=== PATIENT | male | born 1935 | race Caucasian/White ===

== ENCOUNTER 2017-06-23 11:24 | Day surgery (SDC) | payer MEDICARE, BC ==
[~2017-06-23 11:24] MED LIST: Lactated Ringers 1,000 ML IV SCH; Lidocaine 2% 5 ML SDV ONE; Propofol 200 MG/20 ML SDV ONE
--- NOTE | 2017-06-23 12:38 | PCM.PREANE ---
Preanesthetic Assessment - Anesthesia/Transfusion/Family Hx Anesthesia History: Prior Anesthesia Without Reaction Family History of Anesthesia Reaction: No Transfusion History: No Prior Transfusion(s) Intubation History: Unknown - Review of Systems General: No Symptoms Pulmonary: No Symptoms Cardiovascular: No Symptoms Gastrointestinal: Other (h/o colon polyps '11, unintentional loss of 7 pounds) Neurological: No Symptoms Other: Reports: None - Physical Assessment Height: 1.8 m Weight: 92.533 kg ASA Class: 2 Mental Status: Alert & Oriented x3 Airway Class: Mallampati = 2 Dentition: Reports: [place](s) (multiple upper front) Thyro-Mental Finger Breadths: 2 Mouth Opening Finger Breadths: 3 ROM/Head Extension: Limited/Partial Lungs: Clear to Auscultation, Normal Respiratory Effort Cardiovascular: Regular Rate, Regular Rhythm - Allergies Allergies/Adverse Reactions: Allergies Allergy/AdvReac Type Severity Reaction Status Date / Time Sulfa (Sulfonamide Allergy Cannot Verified 06/18/17 10:25 Antibiotics) Remember - Blood Blood Available: No - Anesthesia Plan Pre-Op Medication Ordered: None - Acknowledgements Anesthesia Type Planned: MAC Pt an Appropriate Candidate for the Planned Anesthesia: Yes Alternatives and Risks of Anesthesia Discussed w Pt/Guardian: Yes Pt/Guardian Understands and Agrees with Anesthesia Plan: Yes PreAnesthesia Questionnaire HEENT History: Reports: Glaucoma, Other (See Below) Other HEENT History: wears glasses, glaucoma rt eye Gastrointestinal History: Reports: Colon Polyp, Diverticulosis Genitourinary History: Reports: Prostate Disorder (s/p TURP) Other Genitourinary History: hx Bladder Cancer, s/p TURBT (per patient Neurological History: Reports: Other (See Below) Other Neuro History: Essential Tremors Oncologic (Cancer) History: Reports: Bladder - Past Surgical History Head Surgeries/Procedures: Reports: None HEENT Surgical History: Reports: Cataract Surgery GI Surgical History: Reports: Appendectomy, Colonoscopy, Hernia, Inguinal ( bilateral) Male Surgical History: Reports: TURP-Transurethral Resection of Prostate, Other (See Below) Other Male Surgeries/Procedures: cystoscopy - SUBSTANCE USE Smoking Status *Q: Former Smoker Recreational Drug Use History: No - HOME MEDS Home Medications: Home Meds Ascorbate Calcium [Vitamin C] 500 mg PO ASDIRECTED 06/18/17 [History] Latanoprost [Xalatan 0.005% Ophth Soln] 1 drop EYERT BEDTIME 06/18/17 [History] Propranolol [Inderal] 60 mg PO DAILY 06/18/17 [History] Vitamin A 10,000 units PO ASDIRECTED 06/18/17 [History] Vitamin E 400 units PO ASDIRECTED 06/18/17 [History] - CURRENT (IN HOUSE) MEDS Current Meds: Current Medications Lactated Ringer's (Ringers, Lactated) 1,000 mls @ 125 mls/hr IV ASDIRECTED KRYSTLE Discontinued Medications Lidocaine (Xylocaine-Mpf 2%) Confirm Administered Dose 5 ml .ROUTE .STK-MED ONE Stop: 06/23/17 07:42 Propofol (Diprivan 20 Ml) Confirm Administered Dose 400 mg .ROUTE .STK-MED ONE Stop: 06/23/17 07:42
[2017-06-23] MEDS ORDERED: Propofol 200 MG/20 ML SDV ONE (14:10)
[2017-06-23] MEDS ORDERED: Ondansetron 4 MG Tab.DIS PO PRN (14:39)
--- NOTE | 2017-06-23 14:48 | PCM.OPNOTE ---
- General Post-Op/Procedure Note Date of Surgery/Procedure: 06/23/17 Operative Procedure(s): Esophagogastroduodenoscopy with biopsy. Colonoscopy with cold, sigmoid, descending colon, transverse colon and ascending colon, polypectomies. Pre Op Diagnosis: Early satiety, unexplained weight loss with change in bowel habits Post-Op Diagnosis: Moderate gastritis. Sigmoid, descending colon, transverse colon and ascending colon polyps. Anesthesia Technique: MAC (ASA II) Primary Surgeon: Amos Londono Vp Revenue Cycle: Ed Madrigal Condition: Good Free Text/Narrative:: Dictation [id number] CPT CODE [id number]
[2017-06-23] MEDS ORDERED: Lactated Ringers 1,000 ML IV SCH (15:00)
--- NOTE | 2017-06-23 15:19 | PCM48HPAN ---
Post Anesthesia Note - EVALUATION WITHIN 48HRS OF ANESTHETIC Vital Signs in Normal Range: Yes Patient Participated in Evaluation: Yes Respiratory Function Stable: Yes Airway Patent: Yes Cardiovascular Function Stable: Yes Hydration Status Stable: Yes Pain Control Satisfactory: Yes Nausea and Vomiting Control Satisfactory: Yes Mental Status Recovered: Yes Resp Rate: 16
--- NOTE | 2017-06-23 16:04 | OR ---
SURGEON: Amos Londono M.D. DATE OF PROCEDURE: 06/23/2017 PREOPERATIVE DIAGNOSIS: Unexplained weight loss. Change in bowel habits. POSTOPERATIVE DIAGNOSIS: Sigmoid, descending colon, transverse colon and ascending colon polyps. OPERATION PERFORMED: Colonoscopy with multiple cold polypectomies from the sigmoid colon, descending colon, transverse colon, and ascending colon. DESCRIPTION OF PROCEDURE: With the patient having completed esophagogastroduodenoscopy, he is now maintained in the left lateral decubitus position. The colonoscope was inserted into the rectum and advanced with moderate difficulty to the cecum where the colonoscope was retroflexed to visualize the ascending colon. The colonoscope was then straightened and slowly withdrawn. One polyp was encountered in the ascending colon and removed with the cold biopsy forceps. The hepatic flexure, proximal, and mid transverse colon showed no tumors or polyps. Another polyp was encountered in the transverse colon and removed with cold biopsy forceps. A third polyp was encountered as the scope was withdrawn into the descending colon and likewise removed with the cold biopsy forceps. The fourth polyp was encountered in the sigmoid colon and also removed with the cold biopsy forceps. No sigmoid diverticula were identified. Once the colonoscope was withdrawn to the rectum, it was retroflexed to visualize the anal orifice from above. Again, no tumors, polyps, or acute hemorrhoidal changes were noted. The colonoscope was then straightened, the rectum aspirated, and the colonoscope removed. The patient tolerated the procedure well and was taken to recovery room in satisfactory condition. HOMERO VANN /[id number] ROMINA
--- NOTE | 2017-06-23 16:10 | OR ---
SURGEON: Amos Londono M.D. DATE OF PROCEDURE: 06/23/2017 OPERATION PERFORMED: Esophagogastroduodenoscopy with biopsies. TRAINING DEVELOPMENT MANAGER: Dr. Madrigal, PGY3. ANESTHESIA: MAC. ASA CLASSIFICATION: II. PREOPERATIVE DIAGNOSIS: Early satiety with weight loss. POSTOPERATIVE DIAGNOSES: 1. [id number] acute gastritis. 2. No ulceration. DESCRIPTION OF PROCEDURE: The patient was taken to the endoscopy room and positioned on the endoscopy table in the left lateral decubitus position. Time-out was called for appropriate identification of the patient and procedure. Monitored anesthesia care was provided. A bite block was placed between the patient's teeth. The gastroscope was inserted through the bite block into the oropharynx and advanced without difficulty through the esophagus and stomach into the duodenum where examination was carried out in a retrograde fashion. The duodenum shows no acute inflammatory changes or ulcerations. The gastroscope was withdrawn to the stomach, which does show [id number] gastritis. Antral biopsies were obtained to look for the presence of Helicobacter pylori. The gastroscope was retroflexed to visualize the proximal stomach. No ulcerations were noted. No tumors were identified. The gastroscope was then straightened and slowly withdrawn carefully visualizing the greater and lesser curvatures before aspirating the stomach. No tumors or ulcerations were noted in the proximal stomach. The GE junction was well defined and shows no acute inflammatory changes or ulcerations. The esophagus demonstrates fair contractility. No mid or proximal lesions were identified. The vocal cords were visualized as the scope was withdrawn and noted to move symmetrically. The gastroscope was then removed with the patient having tolerated this portion of the procedure well. Following colonoscopy and multiple polypectomies, the patient was taken to the recovery room in satisfactory condition. HOMERO / SOO /[id number]
[2017-06-23 16:16] VITALS: BP 150/80
== END 2017-06-23 15:20 | disposition home or self-care (01) ==
LOC: MW.SDS 11:24
PROVIDERS: ATTEND Surgery
DX: D12.2 Benign neoplasm of ascending colon (principal); D12.3 Benign neoplasm of transverse colon; D12.4 Benign neoplasm of descending colon; D12.5 Benign neoplasm of sigmoid colon; K29.50 Unspecified chronic gastritis without bleeding; Z88.2 Allergy status to sulfonamides; Z79.899 Other long term (current) drug therapy; Z87.891 Personal history of nicotine dependence
CPT/HCPCS: 43239; 45380; 88305; 88312; J7120; J2704

== ENCOUNTER 2018-04-13 09:01 | Emergency (ER) | payer MEDICARE, BC ==
--- NOTE | 2018-04-13 09:14 | EDM.PDOC ---
ED HPI GENERAL MEDICAL PROBLEM - General Chief Complaint: Neck Problem Stated Complaint: NECK PAIN Time Seen by Provider: 04/13/18 09:12 Source of Information: Reports: Patient History Limitations: Reports: No Limitations - History of Present Illness INITIAL COMMENTS - FREE TEXT/NARRATIVE: History of present illness: []Patient had severe left-sided neck pain last night when he tries to lift his head his pain is worse. He denies any trauma, fevers, difficulty breathing or swallowing or miss or tingling.Review of systems: As per history of present illness and below otherwise all systems reviewed and negative. Past medical history: As per history of present illness and as reviewed below otherwise noncontributory. Surgical history: As per history of present illness and as reviewed below otherwise noncontributory. Social history: No reported history of drug or alcohol abuse. Family history: As per history of present illness and as reviewed below otherwise noncontributory. Physical exam: General: Well developed, well nourished in NAD HEENT: Atraumatic, normocephalic, pupils reactive, negative for conjunctival pallor or scleral icterus, mucous membranes moist, throat clear, neck supple, reproducible tenderness to palpation left base skull, no palpable masses, no erythema or crepitance noted.trachea midline. Lungs: Clear to auscultation, breath sounds equal bilaterally, chest nontender. Heart: S1S2, regular, negative for clicks, rubs, or JVD. Abdomen: NABS, Soft, nondistended, nontender. Negative for masses or hepatosplenomegaly. Negative for costovertebral tenderness. Pelvis: Stable nontender. Genitourinary: Deferred. Rectal: Deferred. Extremities: Atraumatic, negative for cords or calf pain. Neurovascular unremarkable. Neuro: Awake, alert, oriented. Cranial nerves II through XII unremarkable. Cerebellum unremarkable. Motor and sensory unremarkable throughout. Exam nonfocal. Skin:warm and dry Diagnostics: None Therapeutics: Declined pain meds unremarkable ED Course: Impression: Neck muscle spasm Prescriptions: Flexeril Plan: Use meds as directed take Tylenol and Motrin for pain as well as warm compresses. Definitive disposition and diagnosis as appropriate pending reevaluation and review of above. neck Pain Score (Numeric/FACES): 8 - Related Data Allergies Allergy/AdvReac Type Severity Reaction Status Date / Time Sulfa (Sulfonamide Allergy Cannot Verified 06/18/17 10:25 Antibiotics) Remember Home Meds: Home Meds Ascorbate Calcium [Vitamin C] 500 mg PO ASDIRECTED 06/18/17 [History] Latanoprost [Xalatan 0.005% Ophth Soln] 1 drop EYERT BEDTIME 06/18/17 [History] Propranolol [Inderal] 60 mg PO DAILY 06/18/17 [History] Vitamin A 10,000 units PO ASDIRECTED 06/18/17 [History] Vitamin E 400 units PO ASDIRECTED 06/18/17 [History] Cyclobenzaprine [Flexeril] 10 mg PO BID PRN #12 tab 04/13/18 [Rx] Past Medical History HEENT History: Reports: Glaucoma, Other (See Below) Other HEENT History: wears glasses, glaucoma rt eye Gastrointestinal History: Reports: Colon Polyp, Diverticulosis Genitourinary History: Reports: Prostate Disorder (s/p TURP) Other Genitourinary History: hx Bladder Cancer, s/p TURBT (per patient Neurological History: Reports: Other (See Below) Other Neuro History: Essential Tremors Oncologic (Cancer) History: Reports: Bladder - Past Surgical History Head Surgeries/Procedures: Reports: None HEENT Surgical History: Reports: Cataract Surgery GI Surgical History: Reports: Appendectomy, Colonoscopy, Hernia, Inguinal ( bilateral) Male Surgical History: Reports: TURP-Transurethral Resection of Prostate, Other (See Below) Other Male Surgeries/Procedures: cystoscopy ED ROS GENERAL - Review of Systems Review Of Systems: ROS reveals no pertinent complaints other than HPI. ED EXAM, UPPER BACK/NECK PAIN - Physical Exam Exam: See Below (See history of present illness) Course - Vital Signs Last Recorded V/S: Last Vital Signs Temp 96.2 F 04/13/18 09:13 Pulse 75 04/13/18 09:13 Resp 18 04/13/18 09:13 BP 158/77 H 04/13/18 09:13 Pulse Ox 97 04/13/18 09:13 Departure - Departure Time of Disposition: 09:22 Disposition: Home, Self-Care 01 Condition: Good Clinical Impression: Musculoskeletal strain - Discharge Information *PRESCRIPTION DRUG MONITORING PROGRAM REVIEWED*: No *COPY OF PRESCRIPTION DRUG MONITORING REPORT IN PATIENT MARIELA: No Prescriptions: Cyclobenzaprine [Flexeril] 10 mg PO BID PRN #12 tab PRN Reason: Pain Instructions: Muscle Strain, [id number] Referrals: Sergio Paul MD [Primary Care Provider] - Forms: ED Department Discharge Additional Instructions: The following information is given to patients seen in the emergency department who are being discharged to home. This information is to outline your options for follow-up care. We provide all patients seen in our emergency department with a follow-up referral. The need for follow-up, as well as the timing and circumstances, are variable depending upon the specifics of your emergency department visit. If you don't have a primary care physician on staff, we will provide you with a referral. We always advise you to contact your personal physician following an emergency department visit to inform them of the circumstance of the visit and for follow-up with them and/or the need for any referrals to a consulting specialist. The emergency department will also refer you to a specialist when appropriate. This referral assures that you have the opportunity for follow-up care with a specialist. All of these measure are taken in an effort to provide you with optimal care, which includes your follow-up. Under all circumstances we always encourage you to contact your private physician who remains a resource for coordinating your care. When calling for follow-up care, please make the office aware that this follow-up is from your recent emergency room visit. If for any reason you are refused follow-up, please contact the [facility] Emergency Department at and asked to speak to the emergency department charge nurse. Take Flexeril for muscle pain in your neck, he can also use Tylenol or ibuprofen as well as warm packs. Follow up with primary care as needed [facility] [address] [place] [id number]
[2018-04-13 09:35] VITALS: BP 151/78
== END 2018-04-13 09:33 | disposition home or self-care (01) ==
LOC: MW.ED 09:01
DX: S16.1XXA Strain of muscle, fascia and tendon at neck level, initial encounter (principal); Z79.899 Other long term (current) drug therapy; Z85.51 Personal history of malignant neoplasm of bladder; Z88.2 Allergy status to sulfonamides; Z90.89 Acquired absence of other organs; Z98.890 Other specified postprocedural states; Z87.891 Personal history of nicotine dependence; X58.XXXA Exposure to other specified factors, initial encounter
CPT/HCPCS: 99282; 99283

== ENCOUNTER 2020-02-08 18:13 | Emergency (ER) | payer MEDICARE, BC ==
[2020-02-08] MEDS ORDERED: Ondansetron 4 MG/2 ML SDV IVPUSH ONE (20:10)
[2020-02-08] MEDS ORDERED: Sodium Chloride 0.9% 1,000 ML IV ONE (20:10)
--- NOTE | 2020-02-08 20:28 | EDM.PDOC ---
ED HPI GENERAL MEDICAL PROBLEM - General Chief Complaint: General Stated Complaint: SHAKES NOT FEELING WELL Time Seen by Provider: 02/08/20 19:45 Source of Information: Reports: Patient History Limitations: Reports: No Limitations - History of Present Illness INITIAL COMMENTS - FREE TEXT/NARRATIVE: Patient presents "feeling lousy" for the last 10 to 14 days. His biggest proble m is no appetite. He has been slightly nauseated but no vomiting. He is shaky, weak and a little short of breath. He has not eaten hardly anything but has drink lots of fluids. He denies fever, dysuria, pain, abdominal pain, chest pain, cough. He did see his primary provider yesterday in the clinic who did a Covid test but the results are not back. No other testing was done but he was started on doxycycline--he does not know why. His only health history is essential tremor for which he takes propranolol. - Related Data Allergies Allergy/AdvReac Type Severity Reaction Status Date / Time Sulfa (Sulfonamide Allergy Cannot Verified 02/08/20 19:46 Antibiotics) Remember Home Meds: Home Meds Doxycycline Hyclate 100 mg PO BID 02/08/20 [History] Ondansetron [Zofran ODT] 1 tab PO Q6H PRN #10 tab.dis 02/08/20 [Rx] Propranolol [Inderal LA] 60 mg PO DAILY 02/08/20 [History] Past Medical History HEENT History: Reports: Glaucoma, Other (See Below) Other HEENT History: wears glasses, glaucoma rt eye Cardiovascular History: Reports: None Respiratory History: Reports: None Gastrointestinal History: Reports: Colon Polyp, Diverticulosis Other Gastrointestinal History: x2 hernia Genitourinary History: Reports: Prostate Disorder Other Genitourinary History: hx Bladder Cancer, s/p TURBT (per patient Musculoskeletal History: Reports: None Neurological History: Reports: Other (See Below) Other Neuro History: Essential Tremors Psychiatric History: Reports: None Endocrine/Metabolic History: Reports: None Hematologic History: Reports: None Immunologic History: Reports: None Oncologic (Cancer) History: Reports: Bladder Dermatologic History: Reports: None - Infectious Disease History Infectious Disease History: Reports: None - Past Surgical History Head Surgeries/Procedures: Reports: None HEENT Surgical History: Reports: Cataract Surgery Cardiovascular Surgical History: Reports: None Respiratory Surgical History: Reports: None GI Surgical History: Reports: Appendectomy, Colonoscopy, Hernia, Inguinal Male Surgical History: Reports: TURP-Transurethral Resection of Prostate, Other (See Below) Other Male Surgeries/Procedures: cystoscopy Endocrine Surgical History: Reports: None Musculoskeletal Surgical History: Reports: None Dermatological Surgical History: Reports: None Social & Family History - Family History Family Medical History: No Pertinent Family History - Caffeine Use Caffeine Use: Reports: Coffee, Soda - Recreational Drug Use Recreational Drug Use: No ED ROS GENERAL - Review of Systems Review Of Systems: Comprehensive ROS is negative, except as noted in HPI. ED EXAM, GENERAL - Physical Exam Exam: See Below Exam Limited By: No Limitations General Appearance: Alert, No Apparent Distress Ears: Hearing Loss (WRANGELL, DIAZ left ear) Nose: Normal Inspection Throat/Mouth: Normal Inspection Head: Atraumatic, Normocephalic Neck: Normal Inspection Respiratory/Chest: No Respiratory Distress, Lungs Clear, Normal Breath Sounds Cardiovascular: Normal Peripheral Pulses, Regular Rate, Rhythm, No Murmur Back Exam: Normal Inspection Extremities: Normal Inspection Neurological: Alert, Oriented Psychiatric: Normal Affect, Normal Mood Skin Exam: Warm, Dry, Intact, Normal Color, No Rash Lymphatic: No Adenopathy Course - Vital Signs Last Recorded V/S: Last Vital Signs Temp 37.2 C 02/08/20 19:49 Pulse 73 02/08/20 19:49 Resp 22 H 02/08/20 19:49 BP 152/84 H 02/08/20 19:49 Pulse Ox 96 02/08/20 19:49 - Orders/Labs/Meds Orders: Active Orders 24 hr Category Date Time Status CORONAVIRUS COVID-19 PCR PHL Stat Lab 02/08/20 20:12 Ordered UA W/FOZIA RFLX IF INDICATED [URIN] Stat Lab 02/08/20 20:10 Ordered Sodium Chloride 0.9% [Normal Saline] 1,000 ml Med 02/08/20 20:10 Active IV .Bolus Medication Orders Sodium Chloride (Normal Saline) 1,000 mls @ 999 mls/hr IV .Bolus ONE Stop: 02/08/20 21:10 Last Admin: 02/08/20 20:18 Dose: 999 mls/hr Documented by: CAT Labs: Laboratory Tests 02/08/20 02/08/20 Range/Units 20:15 20:15 WBC 5.50 (4.0-11.0) K/uL RBC 4.32 L (4.50-5.90) M/uL Hgb 13.5 (13.0-17.0) g/dL Hct 40.4 (38.0-50.0) % MCV 93.5 (80.0-98.0) fL MCH 31.3 (27.0-32.0) pg MCHC 33.4 (31.0-37.0) g/dL RDW Std Deviation 47.0 (28.0-62.0) fl RDW Coeff of Trev 14 (11.0-15.0) % Plt Count 166 (150-400) K/uL MPV 11.40 (7.40-12.00) fL Neut % (Auto) 62.9 (48.0-80.0) % Lymph % (Auto) 19.8 (16.0-40.0) % [place] % (Auto) 17.1 H (0.0-15.0) % Eos % (Auto) 0.0 (0.0-7.0) % Baso % (Auto) 0.2 (0.0-1.5) % Neut # (Auto) 3.5 (1.4-5.7) K/uL Lymph # (Auto) 1.1 (0.6-2.4) K/uL [place] # (Auto) 0.9 H (0.0-0.8) K/uL Eos # (Auto) 0.0 (0.0-0.7) K/uL Baso # (Auto) 0.0 (0.0-0.1) K/uL Nucleated RBC % 0.0 /100WBC Nucleated RBCs # 0 K/uL Sodium 131 L (136-148) mmol/L Potassium 3.8 (3.5-5.1) mmol/L Chloride 96 L (98-107) mmol/L Carbon Dioxide 25.2 (21.0-32.0) mmol/L BUN 17 (7.0-18.0) mg/dL Creatinine 1.1 (0.8-1.3) mg/dL Est Cr Clr Drug Dosing 52.29 mL/min Estimated GFR (MDRD) > 60.0 ml/min Glucose 120 H (74-106) mg/dL Calcium 9.1 (8.5-10.1) mg/dL Total Bilirubin 1.1 H (0.2-1.0) mg/dL AST 34 (15-37) IU/L ALT 27 (14-63) IU/L Alkaline Phosphatase 87 (46-116) U/L Total Protein 7.2 (6.4-8.2) g/dL Albumin 3.6 (3.4-5.0) g/dL Globulin 3.6 (2.6-4.0) g/dL Albumin/Globulin Ratio 1.0 (0.9-1.6) Meds: Medications Generic Name Dose Route Start Last Admin Trade Name Freq PRN Reason Stop Dose Admin Sodium Chloride 1,000 mls @ 999 mls/hr 02/08/20 20:10 02/08/20 20:18 Normal Saline IV 02/08/20 21:10 999 mls/hr .Bolus ONE Administration Discontinued Medications Generic Name Dose Route Start Last Admin Trade Name Freq PRN Reason Stop Dose Admin Ondansetron HCl 4 mg 02/08/20 20:10 02/08/20 20:18 Zofran IVPUSH 02/08/20 20:11 4 mg ONETIME ONE Administration - Re-Assessments/Exams Free Text/Narrative Re-Assessment/Exam: 02/08/20 22:03 Patient is Covid positive. His chest x-ray completely clear. Suggest saturations in the upper 90s. Afebrile. The patient has been symptomatic for 10 to 14 days and is likely near the end of his convalescence. Departure - Departure Time of Disposition: 22:03 Disposition: Home, Self-Care 01 Condition: Good Clinical Impression: COVID-19 - Discharge Information Referrals: Sergio Paul MD [Primary Care Provider] - Forms: ED Department Discharge Additional Instructions: The following information is given to patients seen in the emergency department who are being discharged to home. This information is to outline your options for follow-up care. We provide all patients seen in our emergency department with a follow-up referral. The need for follow-up, as well as the timing and circumstances, are variable depending upon the specifics of your emergency department visit. If you don't have a primary care physician on staff, we will provide you with a referral. We always advise you to contact your personal physician following an emergency department visit to inform them of the circumstance of the visit and for follow-up with them and/or the need for any referrals to a consulting spec ialist. The emergency department will also refer you to a specialist when appropriate. This referral assures that you have the opportunity for follow-up care with a specialist. All of these measure are taken in an effort to provide you with optimal care, which includes your follow-up. Under all circumstances we always encourage you to contact your private physician who remains a resource for coordinating your care. When calling for follow-up care, please make the office aware that this follow-up is from your recent emergency room visit. If for any reason you are refused follow-up, please contact the [facility] Emergency Department at and asked to speak to the emergency department charge nurse. 1. Drink plenty of fluids 2. Tylenol Extra Strength 1 tablet every 6-8 hours as needed for body aches or fever 3. Zofran under the tongue every 8 hours as needed for nausea 4. Promptly to the ER for shortness of breath, vomiting and not keeping down oral fluids, new or worsening symptoms Sepsis Event Note (ED) - Evaluation Sepsis Screening Result: No Definite Risk - Focused Exam Vital Signs: Vital Signs Temp Pulse Resp BP Pulse Ox 02/08/20 19:49 37.2 C 73 22 H 152/84 H 96 - My Orders Last 24 Hours: My Active Orders 02/08/20 20:10 UA W/FOZIA RFLX IF INDICATED [URIN] Stat Sodium Chloride 0.9% [Normal Saline] 1,000 ml IV .Bolus 02/08/20 20:12 CORONAVIRUS COVID-19 PCR PHL Stat - Assessment/Plan Last 24 Hours: My Active Orders 02/08/20 20:10 UA W/FOZIA RFLX IF INDICATED [URIN] Stat Sodium Chloride 0.9% [Normal Saline] 1,000 ml IV .Bolus 02/08/20 20:12 CORONAVIRUS COVID-19 PCR PHL Stat
--- NOTE | 2020-02-08 20:48 | CR ---
INDICATION: malaise,sob TECHNIQUE: Chest 2 views. COMPARISON: None. FINDINGS: Cardiovascular and mediastinum: Heart size and vasculature are normal in caliber and appearance. Mediastinum is within normal limits. Lungs and pleural spaces: Lungs are clear. No sign of infiltrate or mass. No sign of pleural effusion. No pneumothorax. Bones and soft tissues: No significant findings. IMPRESSION: Unremarkable chest. Dictated by: Meliton Fernandez MD @ 02/08/2020 20:46:50 (Electronically Signed)
[2020-02-08 20:51] LABS: BLOOD UREA NITROGEN,BUN 17 mg/dL (7.0-18.0); CARBON DIOXIDE,CO2 25.2 mmol/L (21.0-32.0); CHLORIDE,CL 96 mmol/L (98-107); GLUCOSE RANDOM 120 mg/dL (74-106); POTASSIUM,K 3.8 mmol/L (3.5-5.1); SODIUM,NA 131 mmol/L (136-148)
[2020-02-08 22:39] VITALS: BP 140/65; PULSE 69
== END 2020-02-08 22:35 | disposition home or self-care (01) ==
LOC: MW.ED 18:13
DX: U07.1 COVID-19 (principal); Z88.2 Allergy status to sulfonamides; Z79.899 Other long term (current) drug therapy
CPT/HCPCS: 36415; 71046; 80053; 81003; 85025; 96374; 99285; J2405; J7030; U0002; 99283

== ENCOUNTER 2020-02-09 17:42 | Emergency (ER) | payer MEDICARE, BC ==
[2020-02-09] MEDS ORDERED: Sodium Chloride 0.9% 500 ML IV ONE (17:56)
[2020-02-09] MEDS ORDERED: Sodium Chloride 0.9% 10 ML Syringe FLUSH PRN (17:56)
[2020-02-09] MEDS ORDERED: Sodium Chloride 0.9% 2.5 ML Syringe FLUSH PRN (17:56)
--- NOTE | 2020-02-09 17:56 | EDM.PDOC ---
<Moises Watson - Last Filed: 02/09/20 20:32> ED HPI GENERAL MEDICAL PROBLEM - General Chief Complaint: Respiratory Problem Stated Complaint: EMS ARRIVAL Time Seen by Provider: 02/09/20 17:49 - Related Data Allergies Allergy/AdvReac Type Severity Reaction Status Date / Time Sulfa (Sulfonamide Allergy Cannot Verified 02/08/20 19:46 Antibiotics) Remember Home Meds: Home Meds Doxycycline Hyclate 100 mg PO BID 02/08/20 [History] Ondansetron [Zofran ODT] 1 tab PO Q6H PRN #10 tab.dis 02/08/20 [Rx] Propranolol [Inderal LA] 60 mg PO DAILY 02/08/20 [History] Departure - Departure Time of Disposition: 20:32 Disposition: Home, Self-Care 01 Condition: Good Clinical Impression: Weakness, Nausea - Discharge Information *PRESCRIPTION DRUG MONITORING PROGRAM REVIEWED*: Not Applicable *COPY OF PRESCRIPTION DRUG MONITORING REPORT IN PATIENT MARIELA: Not Applicable Instructions: Nausea and Vomiting, Adult, Upper Respiratory Infection, Adult, [id number] Referrals: Sergio Paul MD [Primary Care Provider] - Forms: ED Department Discharge Additional Instructions: The following information is given to patients seen in the emergency department who are being discharged to home. This information is to outline your options for follow-up care. We provide all patients seen in our emergency department with a follow-up referral. The need for follow-up, as well as the timing and circumstances, are variable depending upon the specifics of your emergency department visit. If you don't have a primary care physician on staff, we will provide you with a referral. We always advise you to contact your personal physician following an emergency department visit to inform them of the circumstance of the visit and for follow-up with them and/or the need for any referrals to a consulting specialist. The emergency department will also refer you to a specialist when appropriate. This referral assures that you have the opportunity for follow-up care with a specialist. All of these measure are taken in an effort to provide you with optimal care, which includes your follow-up. Under all circumstances we always encourage you to contact your private physician who remains a resource for coordinating your care. When calling for follow-up care, please make the office aware that this follow-up is from your recent emergency room visit. If for any reason you are refused follow-up, please contact the [facility] Emergency Department at and asked to speak to the emergency department charge nurse. Please follow up with your primary care physician. If you do not have a primary care physician, see below: [facility] [address] [place] [id number] [facility] [address] [place], [place] [phone] If you have any difficulty breathing cannot tolerate any food or liquids please return to the ED otherwise please get rest and self quarantine follow-up with your primary care doctor. <Mau Gr - Last Filed: 02/10/20 06:58> ED HPI GENERAL MEDICAL PROBLEM - General Source of Information: Reports: Patient History Limitations: Reports: No Limitations - History of Present Illness INITIAL COMMENTS - FREE TEXT/NARRATIVE: 84-year-old male known diagnosis of COVID-19 presents for persistent nausea, vomiting, lack of appetite, cannot keep anything down. Patient has been feeling unwell for the last 10 or so days. He notes that he has been unable to eat anything for the last 5 days. He notes that he was seen here yesterday for similar symptoms and diagnosed with COVID-19 infection. He notes some mild shortness of breath and mild right-sided chest tightness. However his primary complaint is the nausea, vomiting, lack of appetite, feelings of dehydration. Denies abdominal pain. Denies fevers. Past Medical History HEENT History: Reports: Glaucoma, Other (See Below) Other HEENT History: wears glasses, glaucoma rt eye Cardiovascular History: Reports: None Respiratory History: Reports: None Gastrointestinal History: Reports: Colon Polyp, Diverticulosis Other Gastrointestinal History: x2 hernia Genitourinary History: Reports: Prostate Disorder Other Genitourinary History: hx Bladder Cancer, s/p TURBT (per patient Musculoskeletal History: Reports: None Neurological History: Reports: Other (See Below) Other Neuro History: Essential Tremors Psychiatric History: Reports: None Endocrine/Metabolic History: Reports: None Hematologic History: Reports: None Immunologic History: Reports: None Oncologic (Cancer) History: Reports: Bladder Dermatologic History: Reports: None - Infectious Disease History Infectious Disease History: Reports: None - Past Surgical History Head Surgeries/Procedures: Reports: None HEENT Surgical History: Reports: Cataract Surgery Cardiovascular Surgical History: Reports: None Respiratory Surgical History: Reports: None GI Surgical History: Reports: Appendectomy, Colonoscopy, Hernia, Inguinal Male Surgical History: Reports: TURP-Transurethral Resection of Prostate, Other (See Below) Other Male Surgeries/Procedures: cystoscopy Endocrine Surgical History: Reports: None Musculoskeletal Surgical History: Reports: None Dermatological Surgical History: Reports: None Social & Family History - Family History Family Medical History: No Pertinent Family History - Caffeine Use Caffeine Use: Reports: Coffee, Soda ED ROS GENERAL - Review of Systems Review Of Systems: Comprehensive ROS is negative, except as noted in HPI. ED EXAM, GENERAL - Physical Exam Exam: See Below Exam Limited By: No Limitations General Appearance: Alert, WD/WN, Other (tremors) Throat/Mouth: Normal Voice, No Airway Compromise Head: Atraumatic, Normocephalic Neck: Normal Inspection Respiratory/Chest: No Respiratory Distress, Lungs Clear, Normal Breath Sounds, No Accessory Muscle Use Cardiovascular: Normal Peripheral Pulses, Regular Rate, Rhythm GI/Abdominal: Soft, Non-Tender Extremities: Normal Inspection Neurological: Alert Psychiatric: Normal Affect, Normal Mood Skin Exam: Warm, Dry, Intact, Normal Color Course - Vital Signs Last Recorded V/S: Last Vital Signs Temp 96.5 F L 02/09/20 17:45 Pulse 76 02/09/20 20:33 Resp 18 02/09/20 20:33 BP 110/58 L 02/09/20 20:33 Pulse Ox 96 02/09/20 20:33 - Orders/Labs/Meds Orders: Active Orders 24 hr Category Date Time Status Saline Lock Insert [OM.PC] Stat Oth 02/09/20 17:56 Ordered Labs: Laboratory Tests 02/09/20 02/09/20 02/09/20 Range/Units 18:38 18:38 18:38 WBC 5.71 (4.0-11.0) K/uL RBC 4.45 L (4.50-5.90) M/uL Hgb 13.9 (13.0-17.0) g/dL Hct 41.5 (38.0-50.0) % MCV 93.3 (80.0-98.0) fL MCH 31.2 (27.0-32.0) pg MCHC 33.5 (31.0-37.0) g/dL RDW Std Deviation 47.5 (28.0-62.0) fl RDW Coeff of Trev 14 (11.0-15.0) % Plt Count 167 (150-400) K/uL MPV 12.10 H (7.40-12.00) fL Neut % (Auto) 56.0 (48.0-80.0) % Lymph % (Auto) 25.2 (16.0-40.0) % Mcleod % (Auto) 18.4 H (0.0-15.0) % Eos % (Auto) 0.0 (0.0-7.0) % Baso % (Auto) 0.4 (0.0-1.5) % Neut # (Auto) 3.2 (1.4-5.7) K/uL Lymph # (Auto) 1.4 (0.6-2.4) K/uL Mcleod # (Auto) 1.1 H (0.0-0.8) K/uL Eos # (Auto) 0.0 (0.0-0.7) K/uL Baso # (Auto) 0.0 (0.0-0.1) K/uL Nucleated RBC % 0.0 /100WBC Nucleated RBCs # 0 K/uL Lactate 1.8 (0.20-2.00) mmol/L Sodium 133 L (136-148) mmol/L Potassium 3.8 (3.5-5.1) mmol/L Chloride 97 L (98-107) mmol/L Carbon Dioxide 25.6 (21.0-32.0) mmol/L BUN 16 (7.0-18.0) mg/dL Creatinine 1.2 (0.8-1.3) mg/dL Est Cr Clr Drug Dosing TNP Estimated GFR (MDRD) 57.5 ml/min Glucose 109 H (74-106) mg/dL Calcium 8.9 (8.5-10.1) mg/dL Magnesium 1.9 (1.8-2.4) mg/dL Total Bilirubin 1.1 H (0.2-1.0) mg/dL AST 36 (15-37) IU/L ALT 28 (14-63) IU/L Alkaline Phosphatase 85 (46-116) U/L Troponin I < 0.050 (0.000-0.056) ng/mL C-Reactive Protein 8.20 H (0.00-0.90) mg/dL B-Natriuretic Peptide (<100) PG/ML Total Protein 7.1 (6.4-8.2) g/dL Albumin 3.4 (3.4-5.0) g/dL Globulin 3.7 (2.6-4.0) g/dL Albumin/Globulin Ratio 0.9 (0.9-1.6) Lipase 162 (73-393) U/L 02/09/20 Range/Units 18:38 WBC (4.0-11.0) K/uL RBC (4.50-5.90) M/uL Hgb (13.0-17.0) g/dL Hct (38.0-50.0) % MCV (80.0-98.0) fL MCH (27.0-32.0) pg MCHC (31.0-37.0) g/dL RDW Std Deviation (28.0-62.0) fl RDW Coeff of Trev (11.0-15.0) % Plt Count (150-400) K/uL MPV (7.40-12.00) fL Neut % (Auto) (48.0-80.0) % Lymph % (Auto) (16.0-40.0) % Mcleod % (Auto) (0.0-15.0) % Eos % (Auto) (0.0-7.0) % Baso % (Auto) (0.0-1.5) % Neut # (Auto) (1.4-5.7) K/uL Lymph # (Auto) (0.6-2.4) K/uL Mcleod # (Auto) (0.0-0.8) K/uL Eos # (Auto) (0.0-0.7) K/uL Baso # (Auto) (0.0-0.1) K/uL Nucleated RBC % /100WBC Nucleated RBCs # K/uL Lactate (0.20-2.00) mmol/L Sodium (136-148) mmol/L Potassium (3.5-5.1) mmol/L Chloride (98-107) mmol/L Carbon Dioxide (21.0-32.0) mmol/L BUN (7.0-18.0) mg/dL Creatinine (0.8-1.3) mg/dL Est Cr Clr Drug Dosing Estimated GFR (MDRD) ml/min Glucose (74-106) mg/dL Calcium (8.5-10.1) mg/dL Magnesium (1.8-2.4) mg/dL Total Bilirubin (0.2-1.0) mg/dL AST (15-37) IU/L ALT (14-63) IU/L Alkaline Phosphatase (46-116) U/L Troponin I (0.000-0.056) ng/mL C-Reactive Protein (0.00-0.90) mg/dL B-Natriuretic Peptide 175 H (<100) PG/ML Total Protein (6.4-8.2) g/dL Albumin (3.4-5.0) g/dL Globulin (2.6-4.0) g/dL Albumin/Globulin Ratio (0.9-1.6) Lipase (73-393) U/L Meds: Medications Discontinued Medications Generic Name Dose Route Start Last Admin Trade Name Freq PRN Reason Stop Dose Admin Famotidine 20 mg 02/09/20 17:57 02/09/20 18:40 Pepcid IVPUSH 02/09/20 17:58 20 mg ONETIME ONE Administration Sodium Chloride 500 mls @ 500 mls/hr 02/09/20 17:56 02/09/20 18:43 Normal Saline IV 02/09/20 18:55 500 mls/hr .Bolus ONE Administration Sodium Chloride 1,000 mls @ 999 mls/hr 02/09/20 19:10 02/09/20 19:17 Normal Saline IV 02/09/20 20:10 999 mls/hr .Bolus ONE Administration Metoclopramide HCl 10 mg 02/09/20 19:24 02/09/20 19:28 Reglan IVPUSH 02/09/20 19:25 10 mg ONETIME ONE Administration Ondansetron HCl 4 mg 02/09/20 17:57 02/09/20 18:40 Zofran IVPUSH 02/09/20 17:58 4 mg ONETIME ONE Administration Sodium Chloride 10 ml 02/09/20 17:56 02/09/20 18:44 Saline Flush FLUSH 10 ml ASDIRECTED PRN Administration Keep Vein Open Sodium Chloride 2.5 ml 02/09/20 17:56 02/09/20 18:44 Saline Flush FLUSH 2.5 ml ASDIRECTED PRN Administration Keep Vein Open - Re-Assessments/Exams Free Text/Narrative Re-Assessment/Exam: 02/09/20 18:19 Will get labs, chest x-ray, will treat symptomatically with Zofran and Pepcid and will give IV fluid bolus. 02/09/20 19:00 Patient care transitioned to night-team physician to f/u labs and disposition. Patient well appearing at time of transition. He did have some low BP recordings on the automatic cuff 40s/20s which were not consistent with his normal mentation and lack of distress. A manual recording showed a more likely BP of 1 16/72. Sepsis Event Note (ED) - Focused Exam Vital Signs: Vital Signs Pulse Resp BP Pulse Ox 02/09/20 20:33 76 18 110/58 L 96 02/09/20 19:33 78 137/70 98 02/09/20 19:32 80 20 137/70 98 - My Orders Last 24 Hours: My Active Orders 02/09/20 17:56 Saline Lock Insert [OM.PC] Stat - Assessment/Plan Last 24 Hours: My Active Orders 02/09/20 17:56 Saline Lock Insert [OM.PC] Stat
[2020-02-09] MEDS ORDERED: Ondansetron 4 MG/2 ML SDV IVPUSH ONE (17:57)
[2020-02-09] MEDS ORDERED: Famotidine 20 MG/2 ML SDV IVPUSH ONE (17:57)
[2020-02-09] MEDS ORDERED: Sodium Chloride 0.9% 1,000 ML IV ONE (19:10)
[2020-02-09 19:17] LABS: BLOOD UREA NITROGEN,BUN 16 mg/dL (7.0-18.0); CARBON DIOXIDE,CO2 25.6 mmol/L (21.0-32.0); CHLORIDE,CL 97 mmol/L (98-107); GLUCOSE RANDOM 109 mg/dL (74-106); LIPASE 162 U/L (73-393); POTASSIUM,K 3.8 mmol/L (3.5-5.1); SODIUM,NA 133 mmol/L (136-148)
--- NOTE | 2020-02-09 19:23 | CR ---
Indication: Hunter virus 19 infection Comparison: Two-view chest February 08, 2020 Technique: PA and Lateral views chest Findings: There is hyperinflation and chronic interstitial change with patchy ground-glass opacities of the bilateral hemithoraces likely representing progressing multifocal viral infiltrates. The cardiac silhouette is stably prominent with a tortuous thoracic aorta. The bony thorax is grossly intact. Impression: Overall increasing interstitial and airspace opacities of the bilateral hemithoraces likely representing worsening viral infiltrates. Dictated by Ben Zaragoza MD @ Feb 09 2020 7:21PM Signed by Dr. Ben Zaragoza @ Feb 09 2020 7:22PM
[2020-02-09] MEDS ORDERED: Metoclopramide 10 MG/2 ML SDV IVPUSH ONE (19:24)
[2020-02-09 20:33] VITALS: BP 110/58; PULSE 76
--- NOTE | 2020-02-09 20:35 | PCM.SN.2 ---
- Free Text/Narrative Note: Signed out to me from previous provider. Patient was seen in ED yesterday and diagnosed with Covid. Patient returned today because he has some nausea. Patient denies any shortness of breath. Patient vital signs have been stable as well as labs. Patient was given IV fluids and also is tolerating p.o. here. Patient will be discharged home given strict return precautions if he cannot breathe or tolerate anything by mouth or return.
== END 2020-02-09 20:54 | disposition home or self-care (01) ==
LOC: MW.ED 17:42
DX: R53.1 Weakness (principal); R11.2 Nausea with vomiting, unspecified; Z88.2 Allergy status to sulfonamides
CPT/HCPCS: 36415; 71045; 80053; 83605; 83690; 83735; 83880; 84484; 85025; 86140; 93005; 96374; 96375; 99285; J2405; J2765; J3490; J7030; 93010; 99283

== ENCOUNTER 2020-10-22 18:09 | Emergency (ER) | payer MEDICARE, BC ==
[2020-10-22] MEDS ORDERED: LORazepam 2 MG/ML SDV IM ONE (18:10)
[2020-10-22] MEDS ORDERED: Sodium Chloride 0.9% 10 ML Syringe FLUSH PRN (18:11)
[2020-10-22] MEDS ORDERED: Sodium Chloride 0.9% 2.5 ML Syringe FLUSH PRN (18:11)
[2020-10-22] MEDS: Haloperidol Lactate 5 MG/ML SDV IM ONE ×2 (18:13→18:16)
--- NOTE | 2020-10-22 18:15 | EDM.PDOC ---
<BaldemaryiselMau kaminski Kal - Last Filed: 10/22/20 21:28> ED HPI GENERAL MEDICAL PROBLEM - General Chief Complaint: Neurological Problem Stated Complaint: FALL Time Seen by Provider: 10/22/20 18:10 - Related Data Allergies Allergy/AdvReac Type Severity Reaction Status Date / Time Sulfa (Sulfonamide Allergy Cannot Verified 02/08/20 19:46 Antibiotics) Remember Home Meds: Home Meds Doxycycline Hyclate 100 mg PO BID 02/08/20 [History] Ondansetron [Zofran ODT] 1 tab PO Q6H PRN #10 tab.dis 02/08/20 [Rx] Propranolol [Inderal LA] 60 mg PO DAILY 02/08/20 [History] #1 Interpretation EKG Date: 10/22/20 Time: 21:07 Rhythm: NSR Rate (Beats/Min): 96 [place]: Normal P-Wave: Present QRS: Normal ST-T: Normal QT: Normal SC/PQ Interval: 196 Comparison: NA - No Prior EKG EKG Interpretation Comments: no evidence of acute ischemic changes Course - Re-Assessments/Exams Free Text/Narrative Re-Assessment/Exam: 10/22/20 21:28 Work-up is largely unremarkable. Patient does have mild elevation of BUN and creatinine from baseline. No source of infection identified. Head CT is normal. Chest x-ray is normal. Covid is negative. UDS and alcohol are negative. Spoke with hospitalist regarding admission but considering we will have psychiatry or neurology coverage she request transfer. I spoke with Dr. Hatch at [facility] in [place] who is agreeable to accept patient for transfer. Departure - Departure Time of Disposition: 21:28 Disposition: Home, Self-Care 01 Condition: Fair Clinical Impression: Altered mental status Qualifiers: Altered mental status type: unspecified Qualified Code(s): R41.82 - Altered me ntal status, unspecified - Discharge Information Referrals: PCP,None [Primary Care Provider] - Forms: ED Department Discharge Critical Care Note - Critical Care Note Total Time (mins): 35 <Gregg Gutierrez - Last Filed: 10/23/20 07:09> ED HPI GENERAL MEDICAL PROBLEM - History of Present Illness INITIAL COMMENTS - FREE TEXT/NARRATIVE: Patient is an 85-year-old male without any known significant past medical history. Chart references only mild transient illnesses. He was found altered in his garage. Bystanders reported to EMS that he has "some sort of shaking disease." Paramedics describe him as very combative fighting them moving all extremities well and screaming when disturbed. He was found in his garage. He was given 2.5 mg of Versed in route. This led to improvement but not resolution of his combativeness. Bystanders put a damp towel over his head thinking he might of overheated. He is not diaphoretic per EMS. Additional background per patient's Daughter Alessandra ([phone]): Patient has no prior h/o seizures or Parkinson's Disease. He is on BP meds, a few months ago they decreased the dosage of these as they thought they might be contributing to the shaking. Past Medical History HEENT History: Reports: Glaucoma, Other (See Below) Other HEENT History: wears glasses, glaucoma rt eye Cardiovascular History: Reports: None Respiratory History: Reports: None Gastrointestinal History: Reports: Colon Polyp, Diverticulosis Other Gastrointestinal History: x2 hernia Genitourinary History: Reports: Prostate Disorder Other Genitourinary History: hx Bladder Cancer, s/p TURBT (per patient Musculoskeletal History: Reports: None Neurological History: Reports: Other (See Below) Other Neuro History: Essential Tremors Psychiatric History: Reports: None Endocrine/Metabolic History: Reports: None Hematologic History: Reports: None Immunologic History: Reports: None Oncologic (Cancer) History: Reports: Bladder Dermatologic History: Reports: None - Infectious Disease History Infectious Disease History: Reports: None - Past Surgical History Head Surgeries/Procedures: Reports: None HEENT Surgical History: Reports: Cataract Surgery Cardiovascular Surgical History: Reports: None Respiratory Surgical History: Reports: None GI Surgical History: Reports: Appendectomy, Colonoscopy, Hernia, Inguinal Male Surgical History: Reports: TURP-Transurethral Resection of Prostate, Other (See Below) Other Male Surgeries/Procedures: cystoscopy Endocrine Surgical History: Reports: None Musculoskeletal Surgical History: Reports: None Dermatological Surgical History: Reports: None Social & Family History - Family History Family Medical History: No Pertinent Family History - Caffeine Use Caffeine Use: Reports: Coffee, Soda ED ROS GENERAL - Review of Systems Review Of Systems: Unable To Obtain Reason Not Obtained: Clinical condition ED EXAM, GENERAL - Physical Exam Exam: See Below Free Text/Narrative:: General Appearance: Not acutely toxic Skin: No rash HEENT: Normocephalic/atraumatic, sclera anicteric, mucous membranes dry, no upper airway obstruction pupils PERRLA Neck: Normal range of motion Chest and Lungs: Bilateral breath sounds, clear to auscultation Cardiovascular: Regular rate and rhythm, no murmur Abdomen: Soft, non-tender Back: Normal Musculoskeletal: No edema or tenderness Neurologic: Eyes primarily closed but patient moans and screams to noxious stimuli he is laying on his left side and strongly resists any urge to roll him onto his back. He exhibits some stiffness. He has good strength in all his extremities Course - Vital Signs Last Recorded V/S: Last Vital Signs Temp 97.4 F 10/22/20 21:57 Pulse 84 10/22/20 21:57 Resp 18 10/22/20 21:57 BP 144/72 H 10/22/20 21:57 Pulse Ox 98 10/22/20 21:57 - Orders/Labs/Meds Orders: Active Orders 24 hr Category Date Time Status Insert Biswas Catheter [Insert Urinary Catheter] [OM.PC] Care 10/22/20 20:30 Ordered Q24H Saline Lock Insert [OM.PC] Stat Oth 10/22/20 18:12 Ordered Labs: Laboratory Tests 10/22/20 10/22/20 10/22/20 Range/Units 18:39 18:39 18:39 WBC 9.90 (4.0-11.0) K/uL RBC 4.38 L (4.50-5.90) M/uL Hgb 14.2 (13.0-17.0) g/dL Hct 41.9 (38.0-50.0) % MCV 95.7 (80.0-98.0) fL MCH 32.4 H (27.0-32.0) pg MCHC 33.9 (31.0-37.0) g/dL RDW Std Deviation 49.2 (28.0-62.0) fl RDW Coeff of Trev 14 (11.0-15.0) % Plt Count 191 (150-400) K/uL MPV 11.80 (7.40-12.00) fL Neut % (Auto) 70.0 (48.0-80.0) % Lymph % (Auto) 19.5 (16.0-40.0) % [place] % (Auto) 6.8 (0.0-15.0) % Eos % (Auto) 3.2 (0.0-7.0) % Baso % (Auto) 0.5 (0.0-1.5) % Neut # (Auto) 6.9 H (1.4-5.7) K/uL Lymph # (Auto) 1.9 (0.6-2.4) K/uL [place] # (Auto) 0.7 (0.0-0.8) K/uL Eos # (Auto) 0.3 (0.0-0.7) K/uL Baso # (Auto) 0.1 (0.0-0.1) K/uL Nucleated RBC % 0.0 /100WBC Nucleated RBCs # 0 K/uL ABG Carboxyhemoglobin (0-15) % Sodium 139 (136-148) mmol/L Potassium 4.5 (3.5-5.1) mmol/L Chloride 102 (98-107) mmol/L Carbon Dioxide 21.1 (21.0-32.0) mmol/L BUN 22 H (7.0-18.0) mg/dL Creatinine 1.5 H (0.8-1.3) mg/dL Est Cr Clr Drug Dosing 38.80 mL/min Estimated GFR (MDRD) 44.4 ml/min Glucose 188 H (74-106) mg/dL Calcium 9.6 (8.5-10.1) mg/dL Total Bilirubin 0.7 (0.2-1.0) mg/dL AST 31 (15-37) IU/L ALT 24 (14-63) IU/L Alkaline Phosphatase 110 (46-116) U/L Creatine Kinase 151 (26-308) U/L Troponin I < 0.050 (0.000-0.056) ng/mL Total Protein 7.6 (6.4-8.2) g/dL Albumin 4.0 (3.4-5.0) g/dL Globulin 3.6 (2.6-4.0) g/dL Albumin/Globulin Ratio 1.1 (0.9-1.6) TSH, Ultra Sensitive 3.38 (0.36-3.74) uIU/mL Prolactin 63.3 ng/mL Urine Color Urine Appearance Urine pH (5.0-8.0) Ur Specific Kinde (1.001-1.035) Urine Protein (NEGATIVE) mg/dL Urine Glucose (UA) (NEGATIVE) mg/dL Urine Ketones (NEGATIVE) mg/dL Urine Occult Blood (NEGATIVE) Urine Nitrite (NEGATIVE) Urine Bilirubin (NEGATIVE) Urine Urobilinogen (<2.0) EU/dL Ur Leukocyte Esterase (NEGATIVE) Urine RBC (0-2/HPF) Urine WBC (0-5/HPF) Ur Epithelial Cells (NONE-FEW) Urine Bacteria (NEGATIVE) Urine Mucus (NONE-MOD) Urine Opiates Screen (NEGATIVE) Ur Oxycodone Screen (NEGATIVE) Urine Methadone Screen (NEGATIVE) Ur Barbiturates Screen (NEGATIVE) Ur Phencyclidine Scrn (NEGATIVE) Ur Amphetamine Screen (NEGATIVE) U Methamphetamines Scrn (NEGATIVE) U Benzodiazepines Scrn (NEGATIVE) U Cocaine Metab Screen (NEGATIVE) U Marijuana (THC) Screen (NEGATIVE) Ethyl Alcohol 5 mg/dL SARS-CoV-2 RNA (NICO) (NEGATIVE) 10/22/20 10/22/20 10/22/20 Range/Units 19:12 19:50 20:38 WBC (4.0-11.0) K/uL RBC (4.50-5.90) M/uL Hgb (13.0-17.0) g/dL Hct (38.0-50.0) % MCV (80.0-98.0) fL MCH (27.0-32.0) pg MCHC (31.0-37.0) g/dL RDW Std Deviation (28.0-62.0) fl RDW Coeff of Trev (11.0-15.0) % Plt Count (150-400) K/uL MPV (7.40-12.00) fL Neut % (Auto) (48.0-80.0) % Lymph % (Auto) (16.0-40.0) % [place] % (Auto) (0.0-15.0) % Eos % (Auto) (0.0-7.0) % Baso % (Auto) (0.0-1.5) % Neut # (Auto) (1.4-5.7) K/uL Lymph # (Auto) (0.6-2.4) K/uL [place] # (Auto) (0.0-0.8) K/uL Eos # (Auto) (0.0-0.7) K/uL Baso # (Auto) (0.0-0.1) K/uL Nucleated RBC % /100WBC Nucleated RBCs # K/uL ABG Carboxyhemoglobin 1.8 (0-15) % Sodium (136-148) mmol/L Potassium (3.5-5.1) mmol/L Chloride (98-107) mmol/L Carbon Dioxide (21.0-32.0) mmol/L BUN (7.0-18.0) mg/dL Creatinine (0.8-1.3) mg/dL Est Cr Clr Drug Dosing mL/min Estimated GFR (MDRD) ml/min Glucose (74-106) mg/dL Calcium (8.5-10.1) mg/dL Total Bilirubin (0.2-1.0) mg/dL AST (15-37) IU/L ALT (14-63) IU/L Alkaline Phosphatase (46-116) U/L Creatine Kinase (26-308) U/L Troponin I (0.000-0.056) ng/mL Total Protein (6.4-8.2) g/dL Albumin (3.4-5.0) g/dL Globulin (2.6-4.0) g/dL Albumin/Globulin Ratio (0.9-1.6) TSH, Ultra Sensitive (0.36-3.74) uIU/mL Prolactin ng/mL Urine Color Urine Appearance Urine pH (5.0-8.0) Ur Specific Kinde (1.001-1.035) Urine Protein (NEGATIVE) mg/dL Urine Glucose (UA) (NEGATIVE) mg/dL Urine Ketones (NEGATIVE) mg/dL Urine Occult Blood (NEGATIVE) Urine Nitrite (NEGATIVE) Urine Bilirubin (NEGATIVE) Urine Urobilinogen (<2.0) EU/dL Ur Leukocyte Esterase (NEGATIVE) Urine RBC (0-2/HPF) Urine WBC (0-5/HPF) Ur Epithelial Cells (NONE-FEW) Urine Bacteria (NEGATIVE) Urine Mucus (NONE-MOD) Urine Opiates Screen NEGATIVE (NEGATIVE) Ur Oxycodone Screen NEGATIVE (NEGATIVE) Urine Methadone Screen NEGATIVE (NEGATIVE) Ur Barbiturates Screen NEGATIVE (NEGATIVE) Ur Phencyclidine Scrn NEGATIVE (NEGATIVE) Ur Amphetamine Screen NEGATIVE (NEGATIVE) U Methamphetamines Scrn NEGATIVE (NEGATIVE) U Benzodiazepines Scrn NEGATIVE (NEGATIVE) U Cocaine Metab Screen NEGATIVE (NEGATIVE) U Marijuana (THC) Screen NEGATIVE (NEGATIVE) Ethyl Alcohol mg/dL SARS-CoV-2 RNA (NICO) NEGATIVE (NEGATIVE) 10/22/20 Range/Units 20:38 WBC (4.0-11.0) K/uL RBC (4.50-5.90) M/uL Hgb (13.0-17.0) g/dL Hct (38.0-50.0) % MCV (80.0-98.0) fL MCH (27.0-32.0) pg MCHC (31.0-37.0) g/dL RDW Std Deviation (28.0-62.0) fl RDW Coeff of Trev (11.0-15.0) % Plt Count (150-400) K/uL MPV (7.40-12.00) fL Neut % (Auto) (48.0-80.0) % Lymph % (Auto) (16.0-40.0) % [place] % (Auto) (0.0-15.0) % Eos % (Auto) (0.0-7.0) % Baso % (Auto) (0.0-1.5) % Neut # (Auto) (1.4-5.7) K/uL Lymph # (Auto) (0.6-2.4) K/uL [place] # (Auto) (0.0-0.8) K/uL Eos # (Auto) (0.0-0.7) K/uL Baso # (Auto) (0.0-0.1) K/uL Nucleated RBC % /100WBC Nucleated RBCs # K/uL ABG Carboxyhemoglobin (0-15) % Sodium (136-148) mmol/L Potassium (3.5-5.1) mmol/L Chloride (98-107) mmol/L Carbon Dioxide (21.0-32.0) mmol/L BUN (7.0-18.0) mg/dL Creatinine (0.8-1.3) mg/dL Est Cr Clr Drug Dosing mL/min Estimated GFR (MDRD) ml/min Glucose (74-106) mg/dL Calcium (8.5-10.1) mg/dL Total Bilirubin (0.2-1.0) mg/dL AST (15-37) IU/L ALT (14-63) IU/L Alkaline Phosphatase (46-116) U/L Creatine Kinase (26-308) U/L Troponin I (0.000-0.056) ng/mL Total Protein (6.4-8.2) g/dL Albumin (3.4-5.0) g/dL Globulin (2.6-4.0) g/dL Albumin/Globulin Ratio (0.9-1.6) TSH, Ultra Sensitive (0.36-3.74) uIU/mL Prolactin ng/mL Urine Color YELLOW Urine Appearance CLOUDY Urine pH 5.5 (5.0-8.0) Ur Specific [place]inde 1.020 (1.001-1.035) Urine Protein NEGATIVE (NEGATIVE) mg/dL Urine Glucose (UA) NEGATIVE (NEGATIVE) mg/dL Urine Ketones NEGATIVE (NEGATIVE) mg/dL Urine Occult Blood LARGE H (NEGATIVE) Urine Nitrite NEGATIVE (NEGATIVE) Urine Bilirubin NEGATIVE (NEGATIVE) Urine Urobilinogen 0.2 (<2.0) EU/dL Ur Leukocyte Esterase NEGATIVE (NEGATIVE) Urine RBC TOO NUMEROUS TO CT (0-2/HPF) Urine WBC 1-3 (0-5/HPF) Ur Epithelial Cells FEW (NONE-FEW) Urine Bacteria FEW (NEGATIVE) Urine Mucus LIGHT (NONE-MOD) Urine Opiates Screen (NEGATIVE) Ur Oxycodone Screen (NEGATIVE) Urine Methadone Screen (NEGATIVE) Ur Barbiturates Screen (NEGATIVE) Ur Phencyclidine Scrn (NEGATIVE) Ur Amphetamine Screen (NEGATIVE) U Methamphetamines Scrn (NEGATIVE) U Benzodiazepines Scrn (NEGATIVE) U Cocaine Metab Screen (NEGATIVE) U Marijuana (THC) Screen (NEGATIVE) Ethyl Alcohol mg/dL SARS-CoV-2 RNA (NICO) (NEGATIVE) Meds: Medications Discontinued Medications Generic Name Dose Route Start Last Admin Trade Name Freq PRN Reason Stop Dose Admin Haloperidol Lactate 5 mg 10/22/20 18:10 10/22/20 18:16 Haloperidol Lactate 5 Mg/Ml Sdv IM 10/22/20 18:11 Not Given ONETIME ONE Haloperidol Lactate 5 mg 10/22/20 19:33 10/22/20 19:43 Haloperidol Lactate 5 Mg/Ml Sdv IM 10/22/20 19:34 5 mg ONETIME ONE Administration Sodium Chloride 500 mls @ 500 mls/hr 10/22/20 20:02 10/22/20 20:13 Normal Saline IV 10/22/20 21:01 500 mls/hr .Bolus ONE Administration Lorazepam 2 mg 10/22/20 18:10 10/22/20 18:13 Lorazepam 2 Mg/Ml Sdv IM 10/22/20 18:11 2 mg ONETIME ONE Administration Lorazepam 1 mg 10/22/20 18:44 10/22/20 18:48 Lorazepam 2 Mg/Ml Sdv IVPUSH 10/22/20 18:45 1 mg ONETIME ONE Administration Lorazepam 1 mg 10/22/20 19:15 10/22/20 19:46 Lorazepam 2 Mg/Ml Sdv IVPUSH 10/22/20 19:16 1 mg ONETIME ONE Administration Sodium Chloride 10 ml 10/22/20 18:11 10/22/20 18:17 Sodium Chloride 0.9% 10 Ml Syringe FLUSH 10 ml ASDIRECTED PRN Administration Keep Vein Open Sodium Chloride 2.5 ml 10/22/20 18:11 10/22/20 18:16 Sodium Chloride 0.9% 2.5 Ml Syringe FLUSH 2.5 ml ASDIRECTED PRN Administration Keep Vein Open Sepsis Event Note (ED) - Focused Exam Vital Signs: Vital Signs Temp Pulse Resp BP Pulse Ox 10/22/20 21:57 97.4 F 84 18 144/72 H 98 10/22/20 20:49 98.1 F 91 16 158/88 H 97 10/22/20 19:49 82 20 132/82 97 10/22/20 19:20 98.2 F 84 18 124/71 98 - My Orders Last 24 Hours: My Active Orders 10/22/20 18:12 Saline Lock Insert [OM.PC] Stat - Assessment/Plan Last 24 Hours: My Active Orders 10/22/20 18:12 Saline Lock Insert [OM.PC] Stat Assessment:: 85-year-old male presenting with altered mental status. At this point his neuro exam does not display a reliable focality that would suggest stroke. Int racranial bleeding is a consideration though there is no reported trauma. Patient has no sign of injury on exam. Heatstroke considered but patient does not appear severely hypothermic. Intoxication considered but his presentation does not fit a specific toxidrome or ingestion profile. Seizure with subsequent postictal state is favored at this time. The "shaking disease" is unclear at this time. Given this we will avoid Haldol for now in case this represents Parkinson's disease. Will give an additional 2 mg of IM Ativan. Patient will need lab work to evaluate for electrolyte derangement, intoxication or ingestion ACS felt less likely but EKG Trope pending. CT scan of the brain pending as well. Will check rectal temp to exclude hyperthermia. 1845: Patient slightly more responsive now. Says no and attempts to prevent nursing from pulling down pants for rectal. However, still not communicative and will not engage with providers. Hyperthermia needs to be excluded so will give additional 1 mg PO ativan to aid in safely obtaining rectal temp. 1900: Labs and imaging remains pending, pt HDS. Pt signed out to overnight provider pending results and final disposition.
[2020-10-22] MEDS ORDERED: LORazepam 2 MG/ML SDV IVPUSH ONE ×2 (18:44→19:15)
[2020-10-22 19:14] LABS: BLOOD UREA NITROGEN,BUN 22 mg/dL (7.0-18.0); CARBON DIOXIDE,CO2 21.1 mmol/L (21.0-32.0); CHLORIDE,CL 102 mmol/L (98-107); GLUCOSE RANDOM 188 mg/dL (74-106); POTASSIUM,K 4.5 mmol/L (3.5-5.1); SODIUM,NA 139 mmol/L (136-148)
[2020-10-22] MEDS ORDERED: Haloperidol Lactate 5 MG/ML SDV IM ONE (19:33)
[2020-10-22] MEDS ORDERED: Sodium Chloride 0.9% 500 ML IV ONE (20:02)
--- NOTE | 2020-10-22 20:14 | CT ---
INDICATION: Altered mental status. COMPARISON: CT head 01/03/2015. TECHNIQUE: CT of the head without IV contrast. Coronal and sagittal reconstructions are provided. FINDINGS: No intracranial hemorrhage, mass effect, or evidence of acute infarct. No midline shift. No abnormal extra-axial fluid collections. Mild generalized cerebral and cerebellar volume loss. Normal caliber ventricular system. Mild chronic small vessel ischemic disease. Orbits and extraocular muscles are symmetric. 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 Polyp or mucous retention cyst in the left maxillary sinus. Chronic opacification of the right mastoid air cells. The paranasal sinuses and left mastoid air cells are otherwise clear. No acute fracture. Soft tissues are unremarkable. IMPRESSION: : 1. No acute intracranial findings. 2. Chronic left mastoid effusion. Please note that all CT scans at this facility use dose modulation, iterative reconstruction, and/or weight-based dosing when appropriate to reduce radiation dose to as low as reasonably achievable. Dictated by Nelly Arceo MD @ 10/22/2020 8:12:[address] Nelly Arceo @ Oct 22 2020 8:12PM
--- NOTE | 2020-10-22 20:29 | CR ---
Indication: Altered mental status Technique: Chest 1 view Comparison: Chest x-ray 02/09/2020 Findings/Impression: Cardiovascular and mediastinum: Upper normal heart size with atherosclerotic calcification. Lungs and pleural space: No pleural effusion or pneumothorax. Linear scarring left mid lung. Slight reticular nodular interstitial process right lung which is fairly similar to the prior exam. Bones and soft tissues: No acute findings. Dictated by Robbie Canchola MD @ 10/22/2020 8:27:[address] Robbie Canchola @ Oct 22 2020 8:27PM
[2020-10-22 21:57] VITALS: BP 144/72; PULSE 84
== END 2020-10-22 22:26 | disposition home or self-care (01) ==
LOC: MW.ED 18:09
DX: R41.82 Altered mental status, unspecified (principal); Z88.2 Allergy status to sulfonamides; Z20.822 Contact with and (suspected) exposure to COVID-19
CPT/HCPCS: 36415; 70450; 71045; 80053; 80305; 80307; 81001; 82375; 82550; 84146; 84443; 84484; 85025; 93005; 96372; 96374; 96376; 99285; J1630; J2060; J7030; U0002

== ENCOUNTER 2020-11-01 08:30 | Emergency (ER) | payer MEDICARE, BC ==
[2020-11-01 08:39] VITALS: BP 153/74; PULSE 75
[2020-11-01] MEDS ORDERED: Sodium Chloride 0.9% 2.5 ML Syringe FLUSH PRN (08:39)
[2020-11-01] MEDS ORDERED: Ondansetron 4 MG/2 ML SDV IVPUSH ONE (08:39)
[2020-11-01] MEDS ORDERED: Sodium Chloride 0.9% 500 ML IV ONE (08:39)
[2020-11-01] MEDS ORDERED: Sodium Chloride 0.9% 10 ML Syringe FLUSH PRN (08:39)
--- NOTE | 2020-11-01 08:40 | EDM.PDOC ---
ED HPI GENERAL MEDICAL PROBLEM - General Chief Complaint: General Stated Complaint: DIZZINESS, NOT FEELING WELL Time Seen by Provider: 11/01/20 08:32 Source of Information: Reports: Patient, EMS History Limitations: Reports: No Limitations - History of Present Illness INITIAL COMMENTS - FREE TEXT/NARRATIVE: 85-year-old male past medical history benign tremor presents for generalized weakness. Patient is very poor historian. Patient was recently seen in our emergency department for altered mental status and combative behavior with negative work-up and subsequently transferred to [facility] for further work-up. Patient was found to have a urinary tract infection and NSTEMI; started on Keflex. Patient presents this morning because he states he feels ill. He has a very difficult time describing what this means. He notes some nausea but denies any vomiting. He notes some periumbilical abdominal pain. He denies dysuria or hematuria. Denies cough or shortness of breath. Denies chest pain. Notes feeling some dizziness. Patient is DNR - Related Data Allergies Allergy/AdvReac Type Severity Reaction Status Date / Time Sulfa (Sulfonamide Allergy Severe Cannot Verified 11/01/20 08:32 Antibiotics) Remember Home Meds: Home Meds Doxycycline Hyclate 100 mg PO BID 02/08/20 [History] Ondansetron [Zofran ODT] 1 tab PO Q6H PRN #10 tab.dis 02/08/20 [Rx] Propranolol [Inderal LA] 60 mg PO DAILY 02/08/20 [History] Past Medical History HEENT History: Reports: Glaucoma, Other (See Below) Other HEENT History: wears glasses, glaucoma rt eye Cardiovascular History: Reports: None Respiratory History: Reports: None Gastrointestinal History: Reports: Colon Polyp, Diverticulosis Other Gastrointestinal History: x2 hernia Genitourinary History: Reports: Prostate Disorder Other Genitourinary History: hx Bladder Cancer, s/p TURBT (per patient Musculoskeletal History: Reports: None Neurological History: Reports: Other (See Below) Other Neuro History: Essential Tremors Psychiatric History: Reports: None Endocrine/Metabolic History: Reports: None Hematologic History: Reports: None Immunologic History: Reports: None Oncologic (Cancer) History: Reports: Bladder Dermatologic History: Reports: None - Infectious Disease History Infectious Disease History: Reports: None - Past Surgical History Head Surgeries/Procedures: Reports: None HEENT Surgical History: Reports: Cataract Surgery Cardiovascular Surgical History: Reports: None Respiratory Surgical History: Reports: None GI Surgical History: Reports: Appendectomy, Colonoscopy, Hernia, Inguinal Male Surgical History: Reports: TURP-Transurethral Resection of Prostate, Other (See Below) Other Male Surgeries/Procedures: cystoscopy Endocrine Surgical History: Reports: None Neurological Surgical History: Reports: None Musculoskeletal Surgical History: Reports: None Oncologic Surgical History: Reports: None Dermatological Surgical History: Reports: None Social & Family History - Family History Family Medical History: No Pertinent Family History - Caffeine Use Caffeine Use: Reports: None ED ROS GENERAL - Review of Systems Review Of Systems: Comprehensive ROS is negative, except as noted in HPI. ED EXAM, GENERAL - Physical Exam Exam: See Below Exam Limited By: No Limitations General Appearance: Alert, WD/WN, No Apparent Distress Ears: Hearing Grossly Normal Throat/Mouth: Normal Voice, No Airway Compromise Head: Atraumatic, Normocephalic Neck: Normal Inspection Respiratory/Chest: No Respiratory Distress, Lungs Clear, Normal Breath Sounds, No Accessory Muscle Use Cardiovascular: Normal Peripheral Pulses, Regular Rate, Rhythm GI/Abdominal: Soft, Non-Tender Extremities: Normal Inspection Neurological: Alert, Normal Cognition Psychiatric: Normal Affect, Normal Mood Skin Exam: Warm, Dry, Intact, Normal Color #1 Interpretation EKG Date: 11/01/20 Time: 08:30 Rhythm: NSR Rate (Beats/Min): 75 [place]: Normal P-Wave: Present QRS: Normal ST-T: Normal QT: Normal RI/PQ Interval: 174 EKG Interpretation Comments: normal EKG Course - Vital Signs Last Recorded V/S: Last Vital Signs Temp 96.5 F L 11/01/20 08:30 Pulse 75 11/01/20 08:30 Resp 18 11/01/20 08:30 BP 153/74 H 11/01/20 08:30 Pulse Ox 95 11/01/20 08:30 - Orders/Labs/Meds Orders: Active Orders 24 hr Category Date Time Status EKG Documentation Completion [RC] STAT Care 11/01/20 08:39 Active LACTATE SEPSIS W/ REFLEX [CHEM] Stat Lab 11/01/20 08:58 Received Sodium Chloride 0.9% [Saline Flush] Med 11/01/20 08:39 Active 10 ml FLUSH ASDIRECTED PRN Sodium Chloride 0.9% [Saline Flush] Med 11/01/20 08:39 Active 2.5 ml FLUSH ASDIRECTED PRN Saline Lock Insert [OM.PC] Stat Oth 11/01/20 08:39 Ordered Medication Orders Sodium Chloride (Sodium Chloride 0.9% 10 Ml Syringe) 10 ml FLUSH ASDIRECTED PRN PRN Reason: Keep Vein Open Last Admin: 11/01/20 09:03 Dose: 10 ml Documented by: SHAYLEE Sodium Chloride (Sodium Chloride 0.9% 2.5 Ml Syringe) 2.5 ml FLUSH ASDIRECTED PRN PRN Reason: Keep Vein Open Last Admin: 11/01/20 09:03 Dose: 2.5 ml Documented by: SHAYLEE Labs: Laboratory Tests 11/01/20 11/01/20 11/01/20 Range/Units 08:34 08:34 08:34 WBC 6.65 (4.0-11.0) K/uL RBC 3.49 L (4.50-5.90) M/uL Hgb 11.3 L (13.0-17.0) g/dL Hct 32.9 L (38.0-50.0) % MCV 94.3 (80.0-98.0) fL MCH 32.4 H (27.0-32.0) pg MCHC 34.3 (31.0-37.0) g/dL RDW Std Deviation 48.8 (28.0-62.0) fl RDW Coeff of Trev 14 (11.0-15.0) % Plt Count 249 (150-400) K/uL MPV 11.20 (7.40-12.00) fL Neut % (Auto) 47.8 L (48.0-80.0) % Lymph % (Auto) 35.0 (16.0-40.0) % [place] % (Auto) 12.8 (0.0-15.0) % Eos % (Auto) 3.5 (0.0-7.0) % Baso % (Auto) 0.9 (0.0-1.5) % Neut # (Auto) 3.2 (1.4-5.7) K/uL Lymph # (Auto) 2.3 (0.6-2.4) K/uL [place] # (Auto) 0.9 H (0.0-0.8) K/uL Eos # (Auto) 0.2 (0.0-0.7) K/uL Baso # (Auto) 0.1 (0.0-0.1) K/uL Nucleated RBC % 0.0 /100WBC Nucleated RBCs # 0 K/uL Sodium 137 (136-148) mmol/L Potassium 3.6 (3.5-5.1) mmol/L Chloride 101 (98-107) mmol/L Carbon Dioxide 26.3 (21.0-32.0) mmol/L BUN 12 (7.0-18.0) mg/dL Creatinine 0.9 (0.8-1.3) mg/dL Est Cr Clr Drug Dosing 58.92 mL/min Estimated GFR (MDRD) > 60.0 ml/min Glucose 125 H (74-106) mg/dL Calcium 8.7 (8.5-10.1) mg/dL Magnesium 1.8 (1.8-2.4) mg/dL Total Bilirubin 0.5 (0.2-1.0) mg/dL AST 21 (15-37) IU/L ALT 28 (14-63) IU/L Alkaline Phosphatase 88 (46-116) U/L Troponin I < 0.050 (0.000-0.056) ng/mL B-Natriuretic Peptide 238 H (<100) PG/ML Total Protein 6.4 (6.4-8.2) g/dL Albumin 3.4 (3.4-5.0) g/dL Globulin 3.0 (2.6-4.0) g/dL Albumin/Globulin Ratio 1.1 (0.9-1.6) Urine Color Urine Appearance Urine pH (5.0-8.0) Ur Specific [place] (1.001-1.035) Urine Protein (NEGATIVE) mg/dL Urine Glucose (UA) (NEGATIVE) mg/dL Urine Ketones (NEGATIVE) mg/dL Urine Occult Blood (NEGATIVE) Urine Nitrite (NEGATIVE) Urine Bilirubin (NEGATIVE) Urine Urobilinogen (<2.0) EU/dL Ur Leukocyte Esterase (NEGATIVE) Urine RBC (0-2/HPF) Urine WBC (0-5/HPF) Ur Epithelial Cells (NONE-FEW) Urine Bacteria (NEGATIVE) 11/01/20 Range/Units 09:17 WBC (4.0-11.0) K/uL RBC (4.50-5.90) M/uL Hgb (13.0-17.0) g/dL Hct (38.0-50.0) % MCV (80.0-98.0) fL MCH (27.0-32.0) pg MCHC (31.0-37.0) g/dL RDW Std Deviation (28.0-62.0) fl RDW Coeff of Trev (11.0-15.0) % Plt Count (150-400) K/uL MPV (7.40-12.00) fL Neut % (Auto) (48.0-80.0) % Lymph % (Auto) (16.0-40.0) % [place] % (Auto) (0.0-15.0) % Eos % (Auto) (0.0-7.0) % Baso % (Auto) (0.0-1.5) % Neut # (Auto) (1.4-5.7) K/uL Lymph # (Auto) (0.6-2.4) K/uL [place] # (Auto) (0.0-0.8) K/uL Eos # (Auto) (0.0-0.7) K/uL Baso # (Auto) (0.0-0.1) K/uL Nucleated RBC % /100WBC Nucleated RBCs # K/uL Sodium (136-148) mmol/L Potassium (3.5-5.1) mmol/L Chloride (98-107) mmol/L Carbon Dioxide (21.0-32.0) mmol/L BUN (7.0-18.0) mg/dL Creatinine (0.8-1.3) mg/dL Est Cr Clr Drug Dosing mL/min Estimated GFR (MDRD) ml/min Glucose (74-106) mg/dL Calcium (8.5-10.1) mg/dL Magnesium (1.8-2.4) mg/dL Total Bilirubin (0.2-1.0) mg/dL AST (15-37) IU/L ALT (14-63) IU/L Alkaline Phosphatase (46-116) U/L Troponin I (0.000-0.056) ng/mL B-Natriuretic Peptide (<100) PG/ML Total Protein (6.4-8.2) g/dL Albumin (3.4-5.0) g/dL Globulin (2.6-4.0) g/dL Albumin/Globulin Ratio (0.9-1.6) Urine Color YELLOW Urine Appearance CLEAR Urine pH 7.5 (5.0-8.0) Ur Specific [place] 1.015 (1.001-1.035) Urine Protein NEGATIVE (NEGATIVE) mg/dL Urine Glucose (UA) NEGATIVE (NEGATIVE) mg/dL Urine Ketones NEGATIVE (NEGATIVE) mg/dL Urine Occult Blood SMALL H (NEGATIVE) Urine Nitrite NEGATIVE (NEGATIVE) Urine Bilirubin NEGATIVE (NEGATIVE) Urine Urobilinogen 0.2 (<2.0) EU/dL Ur Leukocyte Esterase NEGATIVE (NEGATIVE) Urine RBC 0-2 (0-2/HPF) Urine WBC 0-1 (0-5/HPF) Ur Epithelial Cells NOT SEEN (NONE-FEW) Urine Bacteria OCCASIONAL (NEGATIVE) Meds: Medications Generic Name Dose Route Start Last Admin Trade Name Bret PRN Reason Stop Dose Admin Sodium Chloride 10 ml 11/01/20 08:39 11/01/20 09:03 Sodium Chloride 0.9% 10 Ml Syringe FLUSH 10 ml ASDIRECTED PRN Administration Keep Vein Open Sodium Chloride 2.5 ml 11/01/20 08:39 11/01/20 09:03 Sodium Chloride 0.9% 2.5 Ml Syringe FLUSH 2.5 ml ASDIRECTED PRN Administration Keep Vein Open Discontinued Medications Generic Name Dose Route Start Last Admin Trade Name Freeran PRN Reason Stop Dose Admin Sodium Chloride 500 mls @ 999 mls/hr 11/01/20 08:39 11/01/20 09:12 Normal Saline IV 11/01/20 09:09 999 mls/hr .Bolus ONE Administration Ondansetron HCl 4 mg 11/01/20 08:39 11/01/20 09:09 Ondansetron 4 Mg/2 Ml Sdv IVPUSH 11/01/20 08:40 4 mg ONETIME ONE Administration - Re-Assessments/Exams Free Text/Narrative Re-Assessment/Exam: 11/01/20 08:42 Basic labs. Will give 500 cc bolus. Will give Zofran. 11/01/20 10:06 Patient is feeling well. Labs are unremarkable. Encourage patient to finish his antibiotics, he has 1 day left. Encourage patient to follow-up with primary care physician. He has appointment next week. Departure - Departure Time of Disposition: 10:06 Disposition: Home, Self-Care 01 Condition: Good Clinical Impression: Dizziness - Discharge Information Instructions: Dizziness, [id number] Forms: ED Department Discharge Additional Instructions: The following information is given to patients seen in the emergency department who are being discharged to home. This information is to outline your options for follow-up care. We provide all patients seen in our emergency department with a follow-up referral. The need for follow-up, as well as the timing and circumstances, are variable depending upon the specifics of your emergency department visit. If you don't have a primary care physician on staff, we will provide you with a referral. We always advise you to contact your personal physician following an emergency department visit to inform them of the circumstance of the visit and for follow-up with them and/or the need for any referrals to a consulting specialist. The emergency department will also refer you to a specialist when appropriate. This referral assures that you have the opportunity for follow-up care with a specialist. All of these measure are taken in an effort to provide you with optimal care, which includes your follow-up. Under all circumstances we always encourage you to contact your private physician who remains a resource for coordinating your care. When calling for follow-up care, please make the office aware that this follow-up is from your recent emergency room visit. If for any reason you are refused follow-up, please contact the [facility] Emergency Department at and asked to speak to the emergency department charge nurse. Please follow up with your primary care physician. If you do not have a primary care physician, see below: [facility] [address] [place] [phone] [facility] [address] [place] [phone] [facility] [address] [place] [id number] Sepsis Event Note (ED) - Evaluation Sepsis Screening Result: No Definite Risk - Focused Exam Vital Signs: Vital Signs Temp Pulse Resp BP Pulse Ox 11/01/20 08:30 96.5 F L 75 18 153/74 H 95 - My Orders Last 24 Hours: My Active Orders 11/01/20 08:39 EKG Documentation Completion [RC] STAT Sodium Chloride 0.9% [Saline Flush] 10 ml FLUSH ASDIRECTED PRN Sodium Chloride 0.9% [Saline Flush] 2.5 ml FLUSH ASDIRECTED PRN Saline Lock Insert [OM.PC] Stat 11/01/20 08:58 LACTATE SEPSIS W/ REFLEX [CHEM] Stat - Assessment/Plan Last 24 Hours: My Active Orders 11/01/20 08:39 EKG Documentation Completion [RC] STAT Sodium Chloride 0.9% [Saline Flush] 10 ml FLUSH ASDIRECTED PRN Sodium Chloride 0.9% [Saline Flush] 2.5 ml FLUSH ASDIRECTED PRN Saline Lock Insert [OM.PC] Stat 11/01/20 08:58 LACTATE SEPSIS W/ REFLEX [CHEM] Stat
[2020-11-01 09:08] LABS: BLOOD UREA NITROGEN,BUN 12 mg/dL (7.0-18.0); CARBON DIOXIDE,CO2 26.3 mmol/L (21.0-32.0); CHLORIDE,CL 101 mmol/L (98-107); GLUCOSE RANDOM 125 mg/dL (74-106); POTASSIUM,K 3.6 mmol/L (3.5-5.1); SODIUM,NA 137 mmol/L (136-148)
--- NOTE | 2020-11-01 09:51 | CR ---
INDICATION: Generalized weakness TECHNIQUE: Chest 1 views COMPARISON: October 22, 2020 FINDINGS: Cardiovascular and mediastinum: Heart size and vasculature are normal in caliber and appearance. Lungs and pleural spaces: Lungs are clear. No sign of infiltrate or mass. No sign of pleural effusion. No pneumothorax. Bones and soft tissues: No significant findings. IMPRESSION: No acute findings and no significant changes from the prior exam. Dictated by Chris Paredes MD @ 11/01/2020 9:49:[address] Chris Paredes @ Nov 01 2020 9:49AM
== END 2020-11-01 10:23 | disposition home or self-care (01) ==
LOC: MW.ED 08:30
DX: R42 Dizziness and giddiness (principal); Z88.2 Allergy status to sulfonamides
CPT/HCPCS: 36415; 71045; 80053; 81001; 83605; 83735; 83880; 84484; 85025; 93005; 96374; 99285; J2405; J7030

== ENCOUNTER 2020-11-03 12:43 | Observation (INO) | payer MEDICARE, BC ==
[2020-11-03] MEDS ORDERED: Sodium Chloride 0.9% 2.5 ML Syringe FLUSH PRN (12:49)
[2020-11-03] MEDS ORDERED: Sodium Chloride 0.9% 10 ML Syringe FLUSH PRN (12:49)
--- NOTE | 2020-11-03 12:49 | EDM.PDOC ---
ED HPI GENERAL MEDICAL PROBLEM - General Chief Complaint: Neuro Symptoms/Deficits Stated Complaint: poss stroke Time Seen by Provider: 11/03/20 12:48 Source of Information: Reports: Patient, EMS History Limitations: Reports: Altered Mental Status - History of Present Illness INITIAL COMMENTS - FREE TEXT/NARRATIVE: 85-year-old male past medical history benign essential tremor, recent transfer to [facility] for altered mental status with ultimate diagnosis urinary tract infection with NSTEMI, currently on Keflex, no blood thinner use presents for aphasia and altered mental status. Per patient's home health nurse at around 11:30 AM patient was noted to have difficulty with speech. Currently patient states that he "does not feel right" and is having difficulty getting his words out. He is otherwise AAO x4. Patient is DNR - Related Data Allergies Allergy/AdvReac Type Severity Reaction Status Date / Time Sulfa (Sulfonamide Allergy Severe Cannot Verified 11/03/20 12:51 Antibiotics) Remember Home Meds: Home Meds Propranolol [Inderal LA] 60 mg PO DAILY 02/08/20 [History] Latanoprost/Pf [Latanoprost 0.005% Eye Drop] 7.5 ml OP BEDTIME 11/03/20 [History] Nystatin/Triamcin [Nystatin-Triamcinolone Ointm] 100,000 units TP ASDIRECTED 11/03/20 [History] cephALEXin [Keflex] 500 mg PO Q8H 11/03/20 [History] Past Medical History HEENT History: Reports: Glaucoma, Other (See Below) Other HEENT History: wears glasses, glaucoma rt eye Cardiovascular History: Reports: None Respiratory History: Reports: None Gastrointestinal History: Reports: Colon Polyp, Diverticulosis Other Gastrointestinal History: x2 hernia Genitourinary History: Reports: Prostate Disorder Other Genitourinary History: hx Bladder Cancer, s/p TURBT (per patient Musculoskeletal History: Reports: None Neurological History: Reports: Other (See Below) Other Neuro History: Essential Tremors Psychiatric History: Reports: None Endocrine/Metabolic History: Reports: None Hematologic History: Reports: None Immunologic History: Reports: None Oncologic (Cancer) History: Reports: Bladder Dermatologic History: Reports: None - Infectious Disease History Infectious Disease History: Reports: None - Past Surgical History Head Surgeries/Procedures: Reports: None HEENT Surgical History: Reports: Cataract Surgery Cardiovascular Surgical History: Reports: None Respiratory Surgical History: Reports: None GI Surgical History: Reports: Appendectomy, Colonoscopy, Hernia, Inguinal Male Surgical History: Reports: TURP-Transurethral Resection of Prostate, Other (See Below) Other Male Surgeries/Procedures: cystoscopy Endocrine Surgical History: Reports: None Neurological Surgical History: Reports: None Musculoskeletal Surgical History: Reports: None Oncologic Surgical History: Reports: None Dermatological Surgical History: Reports: None Social & Family History - Family History Family Medical History: No Pertinent Family History - Caffeine Use Caffeine Use: Reports: None ED ROS GENERAL - Review of Systems Review Of Systems: Comprehensive ROS is negative, except as noted in HPI. ED EXAM, GENERAL - Physical Exam Exam: See Below Exam Limited By: Altered Mental Status General Appearance: Alert, WD/WN, No Apparent Distress, Other (tremors consistent with h/o benign essential tremor) Eye Exam: Bilateral Eye: EOMI, PERRL Ears: Hearing Grossly Normal Throat/Mouth: Normal Voice, No Airway Compromise Head: Atraumatic, Normocephalic Neck: Normal Inspection, Supple Respiratory/Chest: No Respiratory Distress, Lungs Clear, Normal Breath Sounds, No Accessory Muscle Use Cardiovascular: Normal Peripheral Pulses, Regular Rate, Rhythm GI/Abdominal: Soft, Non-Tender Extremities: Normal Inspection Neurological: Alert, Oriented, CN II-XII Intact, No Motor/Sensory Deficits, Other (difficulty with word finding) Psychiatric: Normal Affect, Normal Mood, Anxious Skin Exam: Warm, Dry, Intact, Normal Color #1 Interpretation EKG Date: 11/03/20 Time: 13:20 Rhythm: NSR Rate (Beats/Min): 73 [place]: Normal P-Wave: Present QRS: Normal ST-T: Normal QT: Normal WV/PQ Interval: 49 (unreliable) EKG Interpretation Comments: Poor quality EKG secondary to motion artifact Course - Vital Signs Last Recorded V/S: Last Vital Signs Temp 97 F 11/03/20 12:51 Pulse 66 11/03/20 16:21 Resp 18 11/03/20 15:37 BP 169/84 H 11/03/20 16:21 Pulse Ox 96 11/03/20 16:21 - Orders/Labs/Meds Orders: Active Orders 24 hr Category Date Time Status Patient Status [ADT] Routine ADT 11/03/20 16:44 Ordered Blood Glucose Check, Bedside [RC] ONETIME Care 11/03/20 12:49 Active Cardiac Monitoring [RC] . DIRECTED Care 11/03/20 12:49 Active EKG Documentation Completion [RC] STAT Care 11/03/20 12:49 Active Pulse Oximetry [RC] ASDIRECTED Care 11/03/20 12:49 Active CORONAVIRUS COVID-19 NICO [MOLEC] Stat Lab 11/03/20 13:38 Ordered REFLEX LACTIC ACID YES OR NO [CHEM] Routine Lab 11/03/20 14:13 Received Azithromycin [Zithromax] 500 mg Med 11/03/20 14:00 Active Sodium Chloride 0.9% [Normal Saline (AdvBag)] 250 ml IV ONETIME Sodium Chloride 0.9% [Saline Flush] Med 11/03/20 12:49 Active 10 ml FLUSH ASDIRECTED PRN Sodium Chloride 0.9% [Saline Flush] Med 11/03/20 12:49 Active 2.5 ml FLUSH ASDIRECTED PRN Saline Lock Insert [OM.PC] Stat Oth 11/03/20 12:49 Ordered Medication Orders Azithromycin 500 mg/ Sodium (Chloride) 250 mls @ 250 mls/hr IV ONETIME [facility] Last Admin: 11/03/20 15:39 Dose: 250 mls/hr Documented by: ARIANA Sodium Chloride (Sodium Chloride 0.9% 10 Ml Syringe) 10 ml FLUSH ASDIRECTED PRN PRN Reason: Keep Vein Open Last Admin: 11/03/20 13:27 Dose: 10 ml Documented by: ARIANA Sodium Chloride (Sodium Chloride 0.9% 2.5 Ml Syringe) 2.5 ml FLUSH ASDIRECTED PRN PRN Reason: Keep Vein Open Last Admin: 11/03/20 13:27 Dose: 2.5 ml Documented by: ARIANA Labs: Laboratory Tests 11/03/20 11/03/20 11/03/20 Range/Units 12:46 12:46 12:46 WBC 6.74 (4.0-11.0) K/uL RBC 3.74 L (4.50-5.90) M/uL Hgb 12.0 L (13.0-17.0) g/dL Hct 35.6 L (38.0-50.0) % MCV 95.2 (80.0-98.0) fL MCH 32.1 H (27.0-32.0) pg MCHC 33.7 (31.0-37.0) g/dL RDW Std Deviation 50.4 (28.0-62.0) fl RDW Coeff of Trev 15 (11.0-15.0) % Plt Count 261 (150-400) K/uL MPV 11.10 (7.40-12.00) fL Neut % (Auto) 39.4 L (48.0-80.0) % Lymph % (Auto) 45.5 H (16.0-40.0) % [place] % (Auto) 11.7 (0.0-15.0) % Eos % (Auto) 2.7 (0.0-7.0) % Baso % (Auto) 0.7 (0.0-1.5) % Neut # (Auto) 2.7 (1.4-5.7) K/uL Lymph # (Auto) 3.1 H (0.6-2.4) K/uL [place] # (Auto) 0.8 (0.0-0.8) K/uL Eos # (Auto) 0.2 (0.0-0.7) K/uL Baso # (Auto) 0.1 (0.0-0.1) K/uL Nucleated RBC % 0.0 /100WBC Nucleated RBCs # 0 K/uL INR 1.02 APTT 21.7 (18.6-31.3) SEC Sodium 137 (136-148) mmol/L Potassium 4.3 (3.5-5.1) mmol/L Chloride 103 (98-107) mmol/L Carbon Dioxide 27.4 (21.0-32.0) mmol/L BUN 12 (7.0-18.0) mg/dL Creatinine 1.1 (0.8-1.3) mg/dL Est Cr Clr Drug Dosing 56.05 mL/min Estimated GFR (MDRD) > 60.0 ml/min Glucose 118 H (74-106) mg/dL Lactic Acid (0.4-2.0) mmol/L Calcium 9.6 (8.5-10.1) mg/dL Magnesium 2.0 (1.8-2.4) mg/dL Total Bilirubin 0.7 (0.2-1.0) mg/dL AST 26 (15-37) IU/L ALT 29 (14-63) IU/L Alkaline Phosphatase 78 (46-116) U/L Troponin I < 0.050 (0.000-0.056) ng/mL Total Protein 7.1 (6.4-8.2) g/dL Albumin 3.8 (3.4-5.0) g/dL Globulin 3.3 (2.6-4.0) g/dL Albumin/Globulin Ratio 1.2 (0.9-1.6) TSH, Ultra Sensitive 1.24 (0.36-3.74) uIU/mL Urine Color Urine Appearance Urine pH (5.0-8.0) Ur Specific [place] (1.001-1.035) Urine Protein (NEGATIVE) mg/dL Urine Glucose (UA) (NEGATIVE) mg/dL Urine Ketones (NEGATIVE) mg/dL Urine Occult Blood (NEGATIVE) Urine Nitrite (NEGATIVE) Urine Bilirubin (NEGATIVE) Urine Urobilinogen (<2.0) EU/dL Ur Leukocyte Esterase (NEGATIVE) Urine RBC (0-2/HPF) Urine WBC (0-5/HPF) Ur Epithelial Cells (NONE-FEW) Urine Bacteria (NEGATIVE) Urine Mucus (NONE-MOD) 11/03/20 11/03/20 11/03/20 Range/Units 13:34 13:58 15:58 WBC (4.0-11.0) K/uL RBC (4.50-5.90) M/uL Hgb (13.0-17.0) g/dL Hct (38.0-50.0) % MCV (80.0-98.0) fL MCH (27.0-32.0) pg MCHC (31.0-37.0) g/dL RDW Std Deviation (28.0-62.0) fl RDW Coeff of Trev (11.0-15.0) % Plt Count (150-400) K/uL MPV (7.40-12.00) fL Neut % (Auto) (48.0-80.0) % Lymph % (Auto) (16.0-40.0) % [place] % (Auto) (0.0-15.0) % Eos % (Auto) (0.0-7.0) % Baso % (Auto) (0.0-1.5) % Neut # (Auto) (1.4-5.7) K/uL Lymph # (Auto) (0.6-2.4) K/uL [place] # (Auto) (0.0-0.8) K/uL Eos # (Auto) (0.0-0.7) K/uL Baso # (Auto) (0.0-0.1) K/uL Nucleated RBC % /100WBC Nucleated RBCs # K/uL INR APTT (18.6-31.3) SEC Sodium (136-148) mmol/L Potassium (3.5-5.1) mmol/L Chloride (98-107) mmol/L Carbon Dioxide (21.0-32.0) mmol/L BUN (7.0-18.0) mg/dL Creatinine (0.8-1.3) mg/dL Est Cr Clr Drug Dosing mL/min Estimated GFR (MDRD) ml/min Glucose (74-106) mg/dL Lactic Acid 2.1 H* (0.4-2.0) mmol/L Calcium (8.5-10.1) mg/dL Magnesium (1.8-2.4) mg/dL Total Bilirubin (0.2-1.0) mg/dL AST (15-37) IU/L ALT (14-63) IU/L Alkaline Phosphatase (46-116) U/L Troponin I < 0.050 (0.000-0.056) ng/mL Total Protein (6.4-8.2) g/dL Albumin (3.4-5.0) g/dL Globulin (2.6-4.0) g/dL Albumin/Globulin Ratio (0.9-1.6) TSH, Ultra Sensitive (0.36-3.74) uIU/mL Urine Color YELLOW Urine Appearance CLEAR Urine pH 6.5 (5.0-8.0) Ur Specific [place] <= 1.005 (1.001-1.035) Urine Protein NEGATIVE (NEGATIVE) mg/dL Urine Glucose (UA) NEGATIVE (NEGATIVE) mg/dL Urine Ketones TRACE H (NEGATIVE) mg/dL Urine Occult Blood TRACE-INTACT H (NEGATIVE) Urine Nitrite NEGATIVE (NEGATIVE) Urine Bilirubin NEGATIVE (NEGATIVE) Urine Urobilinogen 0.2 (<2.0) EU/dL Ur Leukocyte Esterase NEGATIVE (NEGATIVE) Urine RBC NONE SEEN (0-2/HPF) Urine WBC 0-1 (0-5/HPF) Ur Epithelial Cells RARE (NONE-FEW) Urine Bacteria RARE (NEGATIVE) Urine Mucus LIGHT (NONE-MOD) Meds: Medications Generic Name Dose Route Start Last Admin Trade Name Bret PRN Reason Stop Dose Admin Azithromycin 500 mg/ Sodium 250 mls @ 250 mls/hr 11/03/20 14:00 11/03/20 15:39 Chloride IV 250 mls/hr ONETIME KRYSTLE Administration Sodium Chloride 10 ml 11/03/20 12:49 11/03/20 13:27 Sodium Chloride 0.9% 10 Ml Syringe FLUSH 10 ml ASDIRECTED PRN Administration Keep Vein Open Sodium Chloride 2.5 ml 11/03/20 12:49 11/03/20 13:27 Sodium Chloride 0.9% 2.5 Ml Syringe FLUSH 2.5 ml ASDIRECTED PRN Administration Keep Vein Open Discontinued Medications Generic Name Dose Route Start Last Admin Trade Name Bret PRN Reason Stop Dose Admin Aspirin 324 mg 11/03/20 13:05 11/03/20 13:29 Aspirin 81 Mg Tab.Chew PO 11/03/20 13:06 324 mg ONETIME ONE Administration Clopidogrel Bisulfate 300 mg 11/03/20 13:56 11/03/20 14:20 Clopidogrel 75 Mg Tab PO 11/03/20 13:57 300 mg ONETIME ONE Administration Cefepime HCl 1 gm/ Premix 50 mls @ 100 mls/hr 11/03/20 13:56 11/03/20 14:29 IV 11/03/20 14:25 Not Given ONETIME ONE Ceftriaxone Sodium/Dextrose 1 50 mls @ 100 mls/hr 11/03/20 13:57 11/03/20 14:20 gm/ Premix IV 11/03/20 14:26 100 mls/hr ONETIME ONE Administration Sodium Chloride 1,000 mls @ 999 mls/hr 11/03/20 14:16 11/03/20 14:20 Normal Saline IV 11/03/20 15:16 999 mls/hr .Bolus ONE Administration Iopamidol 100 ml 11/03/20 13:09 11/03/20 13:10 Iopamidol 755 Mg/Ml 500 Ml Multipack Bottle IVPUSH 11/03/20 13:10 100 ml ONETIME ONE Administration - Re-Assessments/Exams Free Text/Narrative Re-Assessment/Exam: 11/03/20 12:53 Patient presents for difficulty with word finding/aphasia. Patient is noted to have similar presentation to ER roughly 1-week ago and sent to [facility] for further eval. There patient was not found to have evidence of CVA but was diagnosed with UTI and NSTEMI. Of note patient had normal UA here before transfer to [place]. He is currently on keflex. He did come to the ER a couple of days ago for dizziness and had benign labs. Today he certainly does not look as well appearing as his visit a couple of days ago; his tremor is worse and he is having great difficulty speaking and giving a history (although answering questions appropriately). CVA code was called and patient was noted to have normal blood glucose. He will now go for emergent head CT and CTA head/neck. 11/03/20 13:[address] alicia; will not give tPA as patient's only CVA-like symptom is aphasia and this presentation is very similar to last week when patient had MRI confirming no CVA. Will f/u labs and CTA imaging and disposition. Will give full dose aspirin. 11/03/20 16:44 Patient's repeat troponin is negative. MRI is unremarkable. Will admit to medical floor with telemetry for observation status. Departure - Departure Time of Disposition: 16:44 Disposition: Refer to Observation Condition: Good Clinical Impression: TIA (transient ischemic attack) - Discharge Information Referrals: PCP,None [Primary Care Provider] - Forms: ED Department Discharge Sepsis Event Note (ED) - Focused Exam Vital Signs: Vital Signs Temp Pulse Resp BP Pulse Ox 11/03/20 16:21 66 169/84 H 96 11/03/20 15:37 71 18 174/92 H 99 11/03/20 14:26 71 20 165/76 H 95 11/03/20 14:12 68 20 154/78 H 97 11/03/20 13:25 77 22 H 170/75 H 99 11/03/20 13:07 74 23 H 149/97 H 100 11/03/20 12:51 97 F 68 27 H 160/115 H 100 - My Orders Last 24 Hours: My Active Orders 11/03/20 12:49 Blood Glucose Check, Bedside [RC] ONETIME Cardiac Monitoring [RC] . DIRECTED EKG Documentation Completion [RC] STAT Pulse Oximetry [RC] ASDIRECTED Sodium Chloride 0.9% [Saline Flush] 10 ml FLUSH ASDIRECTED PRN Sodium Chloride 0.9% [Saline Flush] 2.5 ml FLUSH ASDIRECTED PRN Saline Lock Insert [OM.PC] Stat 11/03/20 13:38 CORONAVIRUS COVID-19 NICO [MOLEC] Stat 11/03/20 14:00 Azithromycin [Zithromax] 500 mg Sodium Chloride 0.9% [Normal Saline (AdvBag)] 250 ml IV ONETIME 11/03/20 14:13 REFLEX LACTIC ACID YES OR NO [CHEM] Routine 11/03/20 16:44 Patient Status [ADT] Routine - Assessment/Plan Last 24 Hours: My Active Orders 11/03/20 12:49 Blood Glucose Check, Bedside [RC] ONETIME Cardiac Monitoring [RC] . DIRECTED EKG Documentation Completion [RC] STAT Pulse Oximetry [RC] ASDIRECTED Sodium Chloride 0.9% [Saline Flush] 10 ml FLUSH ASDIRECTED PRN Sodium Chloride 0.9% [Saline Flush] 2.5 ml FLUSH ASDIRECTED PRN Saline Lock Insert [OM.PC] Stat 11/03/20 13:38 CORONAVIRUS COVID-19 NICO [MOLEC] Stat 11/03/20 14:00 Azithromycin [Zithromax] 500 mg Sodium Chloride 0.9% [Normal Saline (AdvBag)] 250 ml IV ONETIME 11/03/20 14:13 REFLEX LACTIC ACID YES OR NO [CHEM] Routine 11/03/20 16:44 Patient Status [ADT] Routine
[2020-11-03] MEDS ORDERED: Aspirin 81 MG Tab.Chew PO ONE (13:05)
[2020-11-03] MEDS ORDERED: Iopamidol 755 MG/ML 500 ML Multipack Bottle IVPUSH ONE (13:09)
--- NOTE | 2020-11-03 13:22 | CR ---
INDICATION: Stroke TECHNIQUE: Chest radiograph 1 view COMPARISON: None FINDINGS: Mediastinum: The mediastinum is normal in appearance. The heart silhouette is normal in size and morphology. Lung: Mild diffuse reticular interstitial opacities are present bilaterally with minimal left basilar atelectasis. There is a 1 cm density in the right apex noted. No sign of pleural effusion seen. No pneumothorax is identified. Bone and Soft tissue: Unremarkable for age. IMPRESSIONS: 1. Mild diffuse reticular interstitial opacities are present bilaterally with minimal left basilar atelectasis. Findings may be due to interstitial edema or interstitial pneumonia. 2. There is a 1 cm density in the right apex noted. This may represent an osteophyte at the 1st costochondral junction. Comparison with any prior outside imaging is recommended. If these cannot be obtained, follow up chest radiograph in 3 months is warranted to document stability. Dictated by Owen Araujo MD @ 11/03/2020 1:21:00 PM Dictated by: Owen Araujo MD @ 11/03/2020 13:21:02 (Electronically Signed)
--- NOTE | 2020-11-03 13:30 | CT ---
Indication: A fissure. Technique: CT of the head without contrast. Coronal and sagittal reformats. Bone and soft tissue windows. Comparison: 01/03/2015 Findings: No acute intracranial hemorrhage or extra-axial collection. No evidence of acute cortical infarction. No mass effect or midline shift. Normal cerebral volume. The ventricles are normal in size, shape and contour. There is normal gonzalez and white matter differentiation. The orbital contents are normal. No calvarial fractures. No lytic or sclerotic osseous lesions within the calvarium or skull base. Scalp and other imaged soft tissue structures are normal. Polypoid mucosal thickening in the left maxillary sinus. Similar opacification of the right mastoid air cells and middle ear cavity. 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 No acute intracranial abnormality. 2. Similar opacification of the right mastoid air cells and middle ear cavity. Please note that all CT scans at this facility use dose modulation, iterative reconstruction, and/or weight-based dosing when appropriate to reduce radiation dose to as low as reasonably achievable. Dictated by Meliton Nicholas MD @ 11/03/2020 1:29:[address] Meliton Nicholas @ Nov 03 2020 1:29PM
[2020-11-03 13:35] LABS: BLOOD UREA NITROGEN,BUN 12 mg/dL (7.0-18.0); CARBON DIOXIDE,CO2 27.4 mmol/L (21.0-32.0); CHLORIDE,CL 103 mmol/L (98-107); GLUCOSE RANDOM 118 mg/dL (74-106); POTASSIUM,K 4.3 mmol/L (3.5-5.1); SODIUM,NA 137 mmol/L (136-148)
--- NOTE | 2020-11-03 13:39 | CT ---
DATE: 11/03/2020. CLINICAL HISTORY: Patient with aphasia, mouth tremor. TECHNIQUE: Standard helical CT image acquisition through the head and neck after intravenous contrast bolus enhancement was performed. Multiplanar reconstructed images performed on a separate workstation. COMPARISON: Head CT dated 10/22/2020. FINDINGS: The origins of the great vessels from the aortic arch are patent. The origins of the right and left vertebral arteries are patent. The common carotid arteries are patent. No significant stenoses at the origins of the proximal internal carotid arteries by NASCET criteria. The more distal cervical segments of the internal carotid arteries are patent. The left vertebral artery is dominant and the right vertebral artery hypoplastic. The cervical segments of the vertebral arteries are patent. No intracranial proximal large vessel occlusion or flow-limiting luminal stenosis. Complete opacification of the right mastoid air cells as well as the mesotympanum with thinning of the tegmen tympani, none significantly changed from the prior examination. The visualized lung apices are unremarkable. The thyroid gland is unremarkable. There are degenerative changes in the cervical spine. IMPRESSION: 1. No intracranial proximal large vessel occlusion or flow limiting luminal stenosis. 2. Patent cervical arterial vasculature with no hemodynamically significant luminal stenosis. 3. Complete opacification of the right mastoid air cells mesotympanum with thinning of the tegmen tympani, none significantly changed from the prior examination. Please note that all CT scans at this facility use dose modulation, iterative reconstruction, and/or weight-based dosing when appropriate to reduce radiation dose to as low as reasonably achievable. Dictated by Joni Ewing MD @ 11/03/2020 3:35:[address] Joni Ewing @ Nov 03 2020 3:35PM
[2020-11-03] MEDS ORDERED: Clopidogrel 75 MG Tab PO ONE (13:56)
[2020-11-03] MEDS ORDERED: Cefepime 1 GM in Premix Bag 1 BAG IV ONE (13:56)
[2020-11-03] MEDS ORDERED: cefTRIAXone 1 GM in Premix Bag 1 BAG IV ONE (13:57)
[2020-11-03] MEDS ORDERED: Azithromycin 500 MG in Sodium Chloride 0.9% 250 ML IV SCH (14:00)
[2020-11-03] MEDS ORDERED: Sodium Chloride 0.9% 1,000 ML IV ONE (14:16)
--- NOTE | 2020-11-03 15:30 | MR ---
INDICATION: Aphasic. Evaluate for CVA. TECHNIQUE: Sagittal T1 axial FLAIR T2, diffusion-weighted and susceptibility weighted images of the brain. COMPARISON: CT head and CTA examinations performed earlier today. FINDINGS: The ventricles and subarachnoid spaces are proportionately enlarged due to mild volume loss. There is no evidence of acute ischemic infarction there are no areas of diffusion restriction. There is no evidence of recent intracranial hemorrhage. There is no mass effect. No subdural or epidural fluid collections. The brainstem and cerebellum appear normal. There is a right middle ear and mastoid effusion as can be seen with eustachian tube dysfunction or localized inflammation. IMPRESSION: 1. No evidence of acute infarction, intracranial hemorrhage or mass lesion. 2. Age-related volume loss. 3. Right middle ear and mastoid effusion. Dictated by Arash Medina MD @ 11/03/2020 3:29:[address] Arash Medina @ Nov 03 2020 3:29PM
--- NOTE | 2020-11-03 17:09 | PCM.HP.2 ---
<Ewa Stern - Last Filed: 11/03/20 20:38> H&P History of Present Illness - General Date of Service: 11/03/20 Admit Problem/Dx: Admission Diagnosis/Problem Admission Diagnosis/Problem TIA, Transient ischemic attack - History of Present Illness Initial Comments - Free Text/Narative: 85-year-old male presents to the ER complaining of aphasia, dysarthria and altered mental status since 1130 this morning. Patient was recently transferred to [facility] on 10/23/2020 for altered mental status and it was found there he had a UTI and NSTEMI. Patient has been on Keflex since his discharge on 10/27 and is being followed by home health nursing who noticed that he was having difficulty with speech this morning. He is alert awake and oriented. No symptoms of facial droop, drooling or unilateral weakness. He does have a history of essential tremor at baseline. He denies cough, sputum, choking, chest pain, difficulty breathing, fever, chills, palpitations or abdominal pain. [facility] 10/23/2020-10/27/2020: During his admission at [place] he was found to have NSTEMI with elevated troponins. EKG showed sinus tachycardia with right bundle branch block. Chest x-ray showed COPD changes. As per Dr. Finch's note, he has a history of hypertension. He had an echocardiogram done on 10/23/2020 which showed an ejection fraction of 40%, normal left ventricular size with inferior wall hypokinesis. He was treated conservatively for acute coronary syndrome. He was started on Lovenox but found to have hematuria. After discontinue Lovenox his hematuria improved. He was set up with home health and discharged on Keflex. ER course: WBC 6.7. Hemoglobin 12. INR 1.02. BUN 12. Creatinine 1.1. Glucose 118. Calcium 9.6. Magnesium 2. Troponins negative x2. Lactic acid 2.1. Urinalysis negative for UTI. Chest x-ray showed mild diffuse interstitial opacities bilaterally likely interstitial pneumonia. Patient received 1 g of ceftriaxone. Azithromycin 500 mg. Plavix 300 mg and aspirin [address], CTA head and neck were unremarkable. MRI of the brain was unremarkable. Temperature 97. Pulse 60. Respiratory rate 27. Blood pressure 160/115. Past medical history: NSTEMI, bladder cancer status post TURBT, right eye glaucoma, colonic polyps, diverticulosis, essential tremor Medications: Propranolol 60 mg daily for essential tremor Allergies: Sulfa medications -patient states has been told since he was a child that he has an allergy does not know what it causes. Past surgical history: Appendectomy at 9 years old. Colonoscopy. Hernia repai r x2. TURP. Family history: Does not recall any medical issues in his mother or father. Social history: Smoked 1 pack/day for 4 years in his 20s. No history of alcohol abuse. Occasional beer. Denies illicit drug use. Lives alone in an assisted living facility. States he has a daughter in [place] who is also his POA, Alessandra Hudson. CODE STATUS: DNR/DNI - Related Data Allergies/Adverse Reactions: Allergies Allergy/AdvReac Type Severity Reaction Status Date / Time Sulfa (Sulfonamide Allergy Severe Cannot Verified 11/03/20 17:43 Antibiotics) Remember Home Medications: Home Meds Propranolol [Inderal LA] 60 mg PO DAILY 02/08/20 [History] Latanoprost/Pf [Latanoprost 0.005% Eye Drop] 1 drop EYEBOTH BEDTIME 11/03/20 [History] Nystatin/Triamcin [Nystatin-Triamcinolone Ointm] 1 applic TOP ASDIRECTED PRN 11/03/20 [History] Levofloxacin 750 mg PO DAILY 4 Days #4 tablet 11/04/20 [Rx] Sodium Chloride [Saline Nasal [place]] 88 ml NS TID PRN #1 each 11/04/20 [Rx] Past Medical History HEENT History: Reports: Glaucoma, Other (See Below) Other HEENT History: wears glasses, glaucoma rt eye Cardiovascular History: Reports: None Respiratory History: Reports: None Gastrointestinal History: Reports: Colon Polyp, Diverticulosis Other Gastrointestinal History: x2 hernia Genitourinary History: Reports: Prostate Disorder Other Genitourinary History: hx Bladder Cancer, s/p TURBT (per patient Musculoskeletal History: Reports: None Neurological History: Reports: Other (See Below) Other Neuro History: Essential Tremors Psychiatric History: Reports: None Endocrine/Metabolic History: Reports: None Hematologic History: Reports: None Immunologic History: Reports: None Oncologic (Cancer) History: Reports: Bladder Dermatologic History: Reports: None - Infectious Disease History Infectious Disease History: Reports: None - Past Surgical History Head Surgeries/Procedures: Reports: None HEENT Surgical History: Reports: Cataract Surgery Cardiovascular Surgical History: Reports: None Respiratory Surgical History: Reports: None GI Surgical History: Reports: Appendectomy, Colonoscopy, Hernia, Inguinal Male Surgical History: Reports: TURP-Transurethral Resection of Prostate, Other (See Below) Other Male Surgeries/Procedures: cystoscopy Endocrine Surgical History: Reports: None Neurological Surgical History: Reports: None Musculoskeletal Surgical History: Reports: None Oncologic Surgical History: Reports: None Dermatological Surgical History: Reports: None Social & Family History - Family History Family Medical History: No Pertinent Family History - Tobacco Use Tobacco Use Comment: EMS reported patient is not a smoker - Caffeine Use Caffeine Use: Reports: None - Recreational Drug Use Recreational Drug Use: No H&P Review of Systems - Review of Systems: Review Of Systems: Comprehensive ROS is negative, except as noted in HPI. Exam - Exam Exam: See Below - Vital Signs Vital Signs: Last Vital Signs Temp 97 F 11/03/20 12:51 Pulse 66 11/03/20 16:21 Resp 18 11/03/20 15:37 BP 169/84 H 11/03/20 16:21 Pulse Ox 96 11/03/20 16:21 Weight: 96.8 kg - Exam General: Alert, Oriented, Cooperative, Other (Resting tremor at baseline in bilateral upper extremities) HEENT: Conjunctiva Clear, Mucosa Moist & [place] Neck: Supple. No: Lymphadenopathy, JVD Lungs: Clear to Auscultation, Decreased Breath Sounds. No: Crackles, Wheezing Cardiovascular: Regular Rate, Regular Rhythm GI/Abdominal Exam: Normal Bowel Sounds, Soft, Non-Tender, No Distention. No: Guarding, Rebound Back Exam: Other (Multiple seborrheic keratosis lesions located throughout his back and torso). No: CVA Tenderness (L), CVA Tenderness (R) Peripheral Pulses: 2+: Dorsalis Pedis (L), Dorsalis Pedis (R) Neurological: Other (Resting tremor in upper extremities). No: Normal Speech (Difficulty word finding) Neuro Extensive - Mental Status: Normal Cognition, Nl Response to Commands Neuro Extensive - Motor, Sensory, Reflexes: Dysarthria, Expressive Aphasia. No: Tongue Deviation (L), Tongue Deviation (R), Facial palsy (L), Facial Palsy (R) - Patient Data Lab Results Last 24 hrs: Laboratory Results - last 24 hr 11/03/20 11/03/20 11/03/20 Range/Units 12:46 12:46 12:46 WBC 6.74 (4.0-11.0) K/uL RBC 3.74 L (4.50-5.90) M/uL Hgb 12.0 L (13.0-17.0) g/dL Hct 35.6 L (38.0-50.0) % MCV 95.2 (80.0-98.0) fL MCH 32.1 H (27.0-32.0) pg MCHC 33.7 (31.0-37.0) g/dL RDW Std Deviation 50.4 (28.0-62.0) fl RDW Coeff of Trev 15 (11.0-15.0) % Plt Count 261 (150-400) K/uL MPV 11.10 (7.40-12.00) fL Neut % (Auto) 39.4 L (48.0-80.0) % Lymph % (Auto) 45.5 H (16.0-40.0) % [place] % (Auto) 11.7 (0.0-15.0) % Eos % (Auto) 2.7 (0.0-7.0) % Baso % (Auto) 0.7 (0.0-1.5) % Neut # (Auto) 2.7 (1.4-5.7) K/uL Lymph # (Auto) 3.1 H (0.6-2.4) K/uL Benzie # (Auto) 0.8 (0.0-0.8) K/uL Eos # (Auto) 0.2 (0.0-0.7) K/uL Baso # (Auto) 0.1 (0.0-0.1) K/uL Nucleated RBC % 0.0 /100WBC Nucleated RBCs # 0 K/uL INR 1.02 APTT 21.7 (18.6-31.3) SEC Sodium 137 (136-148) mmol/L Potassium 4.3 (3.5-5.1) mmol/L Chloride 103 (98-107) mmol/L Carbon Dioxide 27.4 (21.0-32.0) mmol/L BUN 12 (7.0-18.0) mg/dL Creatinine 1.1 (0.8-1.3) mg/dL Est Cr Clr Drug Dosing 56.05 mL/min Estimated GFR (MDRD) > 60.0 ml/min Glucose 118 H (74-106) mg/dL Lactic Acid (0.4-2.0) mmol/L Calcium 9.6 (8.5-10.1) mg/dL Magnesium 2.0 (1.8-2.4) mg/dL Total Bilirubin 0.7 (0.2-1.0) mg/dL AST 26 (15-37) IU/L ALT 29 (14-63) IU/L Alkaline Phosphatase 78 (46-116) U/L Troponin I < 0.050 (0.000-0.056) ng/mL Total Protein 7.1 (6.4-8.2) g/dL Albumin 3.8 (3.4-5.0) g/dL Globulin 3.3 (2.6-4.0) g/dL Albumin/Globulin Ratio 1.2 (0.9-1.6) TSH, Ultra Sensitive 1.24 (0.36-3.74) uIU/mL Urine Color Urine Appearance Urine pH (5.0-8.0) Ur Specific [place] (1.001-1.035) Urine Protein (NEGATIVE) mg/dL Urine Glucose (UA) (NEGATIVE) mg/dL Urine Ketones (NEGATIVE) mg/dL Urine Occult Blood (NEGATIVE) Urine Nitrite (NEGATIVE) Urine Bilirubin (NEGATIVE) Urine Urobilinogen (<2.0) EU/dL Ur Leukocyte Esterase (NEGATIVE) Urine RBC (0-2/HPF) Urine WBC (0-5/HPF) Ur Epithelial Cells (NONE-FEW) Urine Bacteria (NEGATIVE) Urine Mucus (NONE-MOD) 11/03/20 11/03/20 11/03/20 Range/Units 13:34 13:58 15:58 WBC (4.0-11.0) K/uL RBC (4.50-5.90) M/uL Hgb (13.0-17.0) g/dL Hct (38.0-50.0) % MCV (80.0-98.0) fL MCH (27.0-32.0) pg MCHC (31.0-37.0) g/dL RDW Std Deviation (28.0-62.0) fl RDW Coeff of Trev (11.0-15.0) % Plt Count (150-400) K/uL MPV (7.40-12.00) fL Neut % (Auto) (48.0-80.0) % Lymph % (Auto) (16.0-40.0) % Benzie % (Auto) (0.0-15.0) % Eos % (Auto) (0.0-7.0) % Baso % (Auto) (0.0-1.5) % Neut # (Auto) (1.4-5.7) K/uL Lymph # (Auto) (0.6-2.4) K/uL Benzie # (Auto) (0.0-0.8) K/uL Eos # (Auto) (0.0-0.7) K/uL Baso # (Auto) (0.0-0.1) K/uL Nucleated RBC % /100WBC Nucleated RBCs # K/uL INR APTT (18.6-31.3) SEC Sodium (136-148) mmol/L Potassium (3.5-5.1) mmol/L Chloride (98-107) mmol/L Carbon Dioxide (21.0-32.0) mmol/L BUN (7.0-18.0) mg/dL Creatinine (0.8-1.3) mg/dL Est Cr Clr Drug Dosing mL/min Estimated GFR (MDRD) ml/min Glucose (74-106) mg/dL Lactic Acid 2.1 H* (0.4-2.0) mmol/L Calcium (8.5-10.1) mg/dL Magnesium (1.8-2.4) mg/dL Total Bilirubin (0.2-1.0) mg/dL AST (15-37) IU/L ALT (14-63) IU/L Alkaline Phosphatase (46-116) U/L Troponin I < 0.050 (0.000-0.056) ng/mL Total Protein (6.4-8.2) g/dL Albumin (3.4-5.0) g/dL Globulin (2.6-4.0) g/dL Albumin/Globulin Ratio (0.9-1.6) TSH, Ultra Sensitive (0.36-3.74) uIU/mL Urine Color YELLOW Urine Appearance CLEAR Urine pH 6.5 (5.0-8.0) Ur Specific [place] <= 1.005 (1.001-1.035) Urine Protein NEGATIVE (NEGATIVE) mg/dL Urine Glucose (UA) NEGATIVE (NEGATIVE) mg/dL Urine Ketones TRACE H (NEGATIVE) mg/dL Urine Occult Blood TRACE-INTACT H (NEGATIVE) Urine Nitrite NEGATIVE (NEGATIVE) Urine Bilirubin NEGATIVE (NEGATIVE) Urine Urobilinogen 0.2 (<2.0) EU/dL Ur Leukocyte Esterase NEGATIVE (NEGATIVE) Urine RBC NONE SEEN (0-2/HPF) Urine WBC 0-1 (0-5/HPF) Ur Epithelial Cells RARE (NONE-FEW) Urine Bacteria RARE (NEGATIVE) Urine Mucus LIGHT (NONE-MOD) Result Diagrams: 11/03/20 12:46 11/03/20 12:46 Sepsis Event Note - Evaluation Sepsis Screening Result: No Definite Risk - Focused Exam Vital Signs: Vital Signs Temp Pulse Resp BP Pulse Ox 11/03/20 16:21 66 169/84 H 96 11/03/20 15:37 71 18 174/92 H 99 11/03/20 14:26 71 20 165/76 H 95 11/03/20 14:12 68 20 154/78 H 97 11/03/20 13:25 77 22 H 170/75 H 99 11/03/20 13:07 74 23 H 149/97 H 100 11/03/20 12:51 97 F 68 27 H 160/115 H 100 - Problem List (1) Pneumonia SNOMED Code(s): 031323131 ICD Code: J18.9 - PNEUMONIA, UNSPECIFIED ORGANISM Status: Acute (2) Speech abnormality SNOMED Code(s): 60411743, 35908479, 055472674 ICD Code: R47.9 - UNSPECIFIED SPEECH DISTURBANCES Status: Acute Problem List Initiated/Reviewed/Updated: Yes Orders Last 24hrs: Active Orders 24 hr Category Date Time Status Patient Status [ADT] Routine ADT 11/03/20 16:44 Active Blood Glucose Check, Bedside [RC] ONETIME Care 11/03/20 12:49 Active Cardiac Monitoring [RC] . DIRECTED Care 11/03/20 12:49 Active EKG Documentation Completion [RC] STAT Care 11/03/20 12:49 Active Pulse Oximetry [RC] ASDIRECTED Care 11/03/20 12:49 Active CORONAVIRUS COVID-19 NICO [MOLEC] Stat Lab 11/03/20 13:38 Ordered REFLEX LACTIC ACID YES OR NO [CHEM] Routine Lab 11/03/20 14:13 Received Azithromycin [Zithromax] 500 mg Med 11/03/20 14:00 Active Sodium Chloride 0.9% [Normal Saline (AdvBag)] 250 ml IV ONETIME Sodium Chloride 0.9% [Saline Flush] Med 11/03/20 12:49 Active 10 ml FLUSH ASDIRECTED PRN Sodium Chloride 0.9% [Saline Flush] Med 11/03/20 12:49 Active 2.5 ml FLUSH ASDIRECTED PRN Saline Lock Insert [OM.PC] Stat Oth 11/03/20 12:49 Ordered Medication Orders Azithromycin 500 mg/ Sodium (Chloride) 250 mls @ 250 mls/hr IV ONETIME KRYSTLE Last Admin: 11/03/20 15:39 Dose: 250 mls/hr Documented by: ARIANA Sodium Chloride (Sodium Chloride 0.9% 10 Ml Syringe) 10 ml FLUSH ASDIRECTED PRN PRN Reason: Keep Vein Open Last Admin: 11/03/20 13:27 Dose: 10 ml Documented by: ARINAA Sodium Chloride (Sodium Chloride 0.9% 2.5 Ml Syringe) 2.5 ml FLUSH ASDIRECTED PRN PRN Reason: Keep Vein Open Last Admin: 11/03/20 13:27 Dose: 2.5 ml Documented by: ARIANA Assessment/Plan Comment:: 85-year-old male with history of NSTEMI on 10/23/20 treated conservatively presents with difficulty with word finding, found to have elevated lactic acid. CXR shows pneumonia. We will start the patient on Azithromycin and Ceftriaxone. We will give the patient half a bolus of normal saline. Bedside swallow eval. Duo nebs as needed. Patient received Plavix and aspirin in the ER. Continue daily aspirin, start statin therapy. Follow morning CBC, CMP and lactic acid level. Physical therapy. Speech therapy. Allow for permissive hypertension. Continue home medications for essential tremor and glaucoma. SCDs. Telemetry monitoring. Incentive spirometry. <Bradford Armenta - Last Filed: 11/10/20 12:37> H&P History of Present Illness - General Admit Problem/Dx: Admission Diagnosis/Problem Admission Diagnosis/Problem TIA, Transient ischemic attack Exam - Vital Signs Vital Signs: Last Vital Signs Temp 36.3 C 11/04/20 12:00 Pulse 56 L 11/04/20 12:00 Resp 18 11/04/20 12:00 BP 113/66 11/04/20 12:00 Pulse Ox 96 11/04/20 12:00 - Patient Data Result Diagrams: 11/04/20 06:30 11/04/20 06:30 Assessment/Plan Comment:: I performed a history and physical exam of the patient and discussed management with resident. I have reviewed the residents note and agree with documented findings and plan unless otherwise specified in my note.
[2020-11-03] MEDS ORDERED: Acetaminophen 325 MG Tab PO PRN (18:43)
[2020-11-03] MEDS ORDERED: Albuterol/Ipratropium 3.0-0.5 MG/3 ML Neb Soln NEB PRN (18:43)
[2020-11-03] MEDS ORDERED: Polyethylene Glycol 3350 Powder 17 GM Packet PO PRN (18:43)
[2020-11-03] MEDS ORDERED: NYSTATIN TOP PRN (18:58)
[2020-11-03] MEDS ORDERED: TRIAMCIN TOP PRN (18:58)
[2020-11-03] MEDS ORDERED: Sodium Chloride 0.9% 500 ML IV ONE (19:30)
[2020-11-03] MEDS ORDERED: Latanoprost 0.005% Ophth Soln 2.5 ML Bottle EYEBOTH SCH (21:00)
[2020-11-03] MEDS ORDERED: atorvaSTATin 20 MG Tab PO SCH (21:00)
[2020-11-03] MEDS ORDERED: Ondansetron 4 MG/2 ML SDV IVPUSH PRN (22:52)
[2020-11-04 07:17] LABS: BLOOD UREA NITROGEN,BUN 9 mg/dL (7.0-18.0); CARBON DIOXIDE,CO2 24.6 mmol/L (21.0-32.0); CHLORIDE,CL 105 mmol/L (98-107); GLUCOSE RANDOM 100 mg/dL (74-106); POTASSIUM,K 3.5 mmol/L (3.5-5.1); SODIUM,NA 138 mmol/L (136-148)
[2020-11-04] MEDS ORDERED: Pantoprazole 40 MG in Sodium Chloride 0.9% 10 ML IV SCH (09:00)
[2020-11-04] MEDS ORDERED: Aspirin 325 MG Tab PO SCH (09:00)
[2020-11-04] MEDS ORDERED: Propranolol 60 MG Cap.ER PO SCH (09:00)
--- NOTE | 2020-11-04 11:02 | PCM.DCSUM1 ---
Discharge Summary - Hospital Course Free Text/Narrative:: 85-year-old male presented to the ED on with complaints of aphasia, dysarthria and altered mental status. Patient was recently seen in [facility] ED and transferred to patient [facility] on 10/23/2020 for altered mental status. Patient that time was diagnosed with a UTI and NSTEMI, managed conservatively. Patient was treated for the UTI with Keflex. Peter Vasquez 10/23/2020-10/27/2020: During his admission at [facility] he was found to have NSTEMI with elevated troponins. EKG showed sinus tachycardia with right bundle branch block. Chest x-ray showed COPD changes. As per Dr. Finch's note, he has a history of hypertension. He had an echocardiogram done on 10/23/2020 which showed an ejection fraction of 40%, normal left ventricular size with inferior wall hypokinesis. He was treated conservatively for acute coronary syndrome. He was started on Lovenox but found to have hematuria. After discontinue Lovenox his hematuria improved. He was set up with home health and discharged on Keflex. ER course on current admission WBC 6.7. Hemoglobin 12. INR 1.02. BUN 12. Creatinine 1.1. Glucose 118. Calcium 9.6. Magnesium 2. Troponins negative x2. Lactic acid 2.1. Urinalysis negative for UTI. Chest x-ray showed mild diffuse interstitial opacities bilaterally likely interstitial pneumonia. Patient received 1 g of ceftriaxone. Azithromycin 500 mg. Plavix 300 mg and aspirin [address], CTA head and neck were unremarkable. MRI of the brain was unremarkable. Temperature 97. Pulse 60. Respiratory rate 27. Blood pressure 160/115. Patient was treated for pneumonia with Azithromycin and Ceftriaxone during admission and was discharged home on levofloxacin. At discharge patient had no neurological symptoms, no symptoms or signs of altered mental status. Patient was seen by physical therapy and was assessed with having full functional mobility. No necessity for home health or outpatient physical therapy. - Discharge Data Discharge Date: 11/04/20 Discharge Disposition: Home, Self-Care 01 Condition: Stable - Referral to Home Health Primary Care Physician: PCP None - Patient Summary/Data Consults: Consultations 11/03/20 18:43 PT Evaluation and Treatment [CONS] Routine [employer] Evaluation and Treatment [CONS] Routine - Discharge Plan *PRESCRIPTION DRUG MONITORING PROGRAM REVIEWED*: Not Applicable *COPY OF PRESCRIPTION DRUG MONITORING REPORT IN PATIENT MARIELA: Not Applicable Prescriptions/Med Rec: Levofloxacin 750 mg PO DAILY 4 Days #4 tablet Sodium Chloride [Saline Nasal [place]] 88 ml NS TID PRN #1 each PRN Reason: Nasal Dryness Home Medications: Home Meds Propranolol [Inderal LA] 60 mg PO DAILY 02/08/20 [History] Latanoprost/Pf [Latanoprost 0.005% Eye Drop] 1 drop EYEBOTH BEDTIME 11/03/20 [History] Nystatin/Triamcin [Nystatin-Triamcinolone Ointm] 1 applic TOP ASDIRECTED PRN 11/03/20 [History] Levofloxacin 750 mg PO DAILY 4 Days #4 tablet 11/04/20 [Rx] Sodium Chloride [Saline Nasal [place]] 88 ml NS TID PRN #1 each 11/04/20 [Rx] Patient Handouts: Transient Ischemic Attack, [id number], Levofloxacin tablets, Community-Acquired Pneumonia, Adult, [id number] Forms: ED Department Discharge Referrals: Sergio Paul MD [Ordering Only Provider] - 11/07/20 - Discharge Summary/Plan Comment DC Time >30 min.: Yes - General Info Subjective Update: Patient states he feels well this morning. Denies fever, chills, nausea, vomiting, headaches. Denies decreased strength or sensation in any extremity. Denies blurry vision, headaches. - Review of Systems General: Denies: Fever, Chills Pulmonary: Denies: Shortness of Breath, Cough Cardiovascular: Denies: Chest Pain Gastrointestinal: Denies: Abdominal Pain, Vomiting Genitourinary: Denies: Dysuria Neurological: Denies: Confusion, Dizziness, Headache, Numbness, Tingling, Trouble Speaking, Difficulty Walking, Weakness, Change in Speech Psychiatric: Denies: Confusion - Patient Data Vitals - Most Recent: Last Vital Signs Temp 98.2 F 11/04/20 07:59 Pulse 64 11/04/20 07:59 Resp 18 11/04/20 07:59 BP 145/68 H 11/04/20 07:59 Pulse Ox 93 L 11/04/20 07:59 Weight - Most Recent: 204 lb 8 oz I&O - Last 24 hours: Intake & Output 11/03/20 11/04/20 11/04/20 22:59 06:59 14:59 Intake Total 300 Output Total 640 Balance -340 Lab Results - Last 24 hrs: Laboratory Results - last 24 hr 11/03/20 11/03/20 11/03/20 Range/Units 12:46 12:46 12:46 WBC 6.74 (4.0-11.0) K/uL RBC 3.74 L (4.50-5.90) M/uL Hgb 12.0 L (13.0-17.0) g/dL Hct 35.6 L (38.0-50.0) % MCV 95.2 (80.0-98.0) fL MCH 32.1 H (27.0-32.0) pg MCHC 33.7 (31.0-37.0) g/dL RDW Std Deviation 50.4 (28.0-62.0) fl RDW Coeff of Trev 15 (11.0-15.0) % Plt Count 261 (150-400) K/uL MPV 11.10 (7.40-12.00) fL Neut % (Auto) 39.4 L (48.0-80.0) % Lymph % (Auto) 45.5 H (16.0-40.0) % [place] % (Auto) 11.7 (0.0-15.0) % Eos % (Auto) 2.7 (0.0-7.0) % Baso % (Auto) 0.7 (0.0-1.5) % Neut # (Auto) 2.7 (1.4-5.7) K/uL Lymph # (Auto) 3.1 H (0.6-2.4) K/uL [place] # (Auto) 0.8 (0.0-0.8) K/uL Eos # (Auto) 0.2 (0.0-0.7) K/uL Baso # (Auto) 0.1 (0.0-0.1) K/uL Nucleated RBC % 0.0 /100WBC Nucleated RBCs # 0 K/uL INR 1.02 APTT 21.7 (18.6-31.3) SEC Sodium 137 (136-148) mmol/L Potassium 4.3 (3.5-5.1) mmol/L Chloride 103 (98-107) mmol/L Carbon Dioxide 27.4 (21.0-32.0) mmol/L BUN 12 (7.0-18.0) mg/dL Creatinine 1.1 (0.8-1.3) mg/dL Est Cr Clr Drug Dosing 56.05 mL/min Estimated GFR (MDRD) > 60.0 ml/min Glucose 118 H (74-106) mg/dL Hemoglobin A1c (4.5 - 6.2) % Lactic Acid (0.4-2.0) mmol/L Calcium 9.6 (8.5-10.1) mg/dL Magnesium 2.0 (1.8-2.4) mg/dL Total Bilirubin 0.7 (0.2-1.0) mg/dL AST 26 (15-37) IU/L ALT 29 (14-63) IU/L Alkaline Phosphatase 78 (46-116) U/L Creatine Kinase (26-308) U/L Troponin I < 0.050 (0.000-0.056) ng/mL Total Protein 7.1 (6.4-8.2) g/dL Albumin 3.8 (3.4-5.0) g/dL Globulin 3.3 (2.6-4.0) g/dL Albumin/Globulin Ratio 1.2 (0.9-1.6) Triglycerides (0-200) mg/dL Cholesterol (50-200) mg/dL LDL Cholesterol, Calc (60-180) mg/dL VLDL Cholesterol (5-55) mg/dL HDL Cholesterol (40-60) mg/dL Cholesterol/HDL Ratio (3.3-6.0) TSH, Ultra Sensitive 1.24 (0.36-3.74) uIU/mL Urine Color Urine Appearance Urine pH (5.0-8.0) Ur Specific [place] (1.001-1.035) Urine Protein (NEGATIVE) mg/dL Urine Glucose (UA) (NEGATIVE) mg/dL Urine Ketones (NEGATIVE) mg/dL Urine Occult Blood (NEGATIVE) Urine Nitrite (NEGATIVE) Urine Bilirubin (NEGATIVE) Urine Urobilinogen (<2.0) EU/dL Ur Leukocyte Esterase (NEGATIVE) Urine RBC (0-2/HPF) Urine WBC (0-5/HPF) Ur Epithelial Cells (NONE-FEW) Urine Bacteria (NEGATIVE) Urine Mucus (NONE-MOD) 0811/03/20 11/03/20 Range/Units 13:34 13:58 15:58 WBC (4.0-11.0) K/uL RBC (4.50-5.90) M/uL Hgb (13.0-17.0) g/dL Hct (38.0-50.0) % MCV (80.0-98.0) fL MCH (27.0-32.0) pg MCHC (31.0-37.0) g/dL RDW Std Deviation (28.0-62.0) fl RDW Coeff of Trev (11.0-15.0) % Plt Count (150-400) K/uL MPV (7.40-12.00) fL Neut % (Auto) (48.0-80.0) % Lymph % (Auto) (16.0-40.0) % [place] % (Auto) (0.0-15.0) % Eos % (Auto) (0.0-7.0) % Baso % (Auto) (0.0-1.5) % Neut # (Auto) (1.4-5.7) K/uL Lymph # (Auto) (0.6-2.4) K/uL [place] # (Auto) (0.0-0.8) K/uL Eos # (Auto) (0.0-0.7) K/uL Baso # (Auto) (0.0-0.1) K/uL Nucleated RBC % /100WBC Nucleated RBCs # K/uL INR APTT (18.6-31.3) SEC Sodium (136-148) mmol/L Potassium (3.5-5.1) mmol/L Chloride (98-107) mmol/L Carbon Dioxide (21.0-32.0) mmol/L BUN (7.0-18.0) mg/dL Creatinine (0.8-1.3) mg/dL Est Cr Clr Drug Dosing mL/min Estimated GFR (MDRD) ml/min Glucose (74-106) mg/dL Hemoglobin A1c (4.5 - 6.2) % Lactic Acid 2.1 H* (0.4-2.0) mmol/L Calcium (8.5-10.1) mg/dL Magnesium (1.8-2.4) mg/dL Total Bilirubin (0.2-1.0) mg/dL AST (15-37) IU/L ALT (14-63) IU/L Alkaline Phosphatase (46-116) U/L Creatine Kinase (26-308) U/L Troponin I < 0.050 (0.000-0.056) ng/mL Total Protein (6.4-8.2) g/dL Albumin (3.4-5.0) g/dL Globulin (2.6-4.0) g/dL Albumin/Globulin Ratio (0.9-1.6) Triglycerides (0-200) mg/dL Cholesterol (50-200) mg/dL LDL Cholesterol, Calc (60-180) mg/dL VLDL Cholesterol (5-55) mg/dL HDL Cholesterol (40-60) mg/dL Cholesterol/HDL Ratio (3.3-6.0) TSH, Ultra Sensitive (0.36-3.74) uIU/mL Urine Color YELLOW Urine Appearance CLEAR Urine pH 6.5 (5.0-8.0) Ur Specific [place] <= 1.005 (1.001-1.035) Urine Protein NEGATIVE (NEGATIVE) mg/dL Urine Glucose (UA) NEGATIVE (NEGATIVE) mg/dL Urine Ketones TRACE H (NEGATIVE) mg/dL Urine Occult Blood TRACE-INTACT H (NEGATIVE) Urine Nitrite NEGATIVE (NEGATIVE) Urine Bilirubin NEGATIVE (NEGATIVE) Urine Urobilinogen 0.2 (<2.0) EU/dL Ur Leukocyte Esterase NEGATIVE (NEGATIVE) Urine RBC NONE SEEN (0-2/HPF) Urine WBC 0-1 (0-5/HPF) Ur Epithelial Cells RARE (NONE-FEW) Urine Bacteria RARE (NEGATIVE) Urine Mucus LIGHT (NONE-MOD) 11/03/20 11/03/20 11/03/20 Range/Units 15:58 15:58 18:36 WBC (4.0-11.0) K/uL RBC (4.50-5.90) M/uL Hgb (13.0-17.0) g/dL Hct (38.0-50.0) % MCV (80.0-98.0) fL MCH (27.0-32.0) pg MCHC (31.0-37.0) g/dL RDW Std Deviation (28.0-62.0) fl RDW Coeff of Trev (11.0-15.0) % Plt Count (150-400) K/uL MPV (7.40-12.00) fL Neut % (Auto) (48.0-80.0) % Lymph % (Auto) (16.0-40.0) % [place] % (Auto) (0.0-15.0) % Eos % (Auto) (0.0-7.0) % Baso % (Auto) (0.0-1.5) % Neut # (Auto) (1.4-5.7) K/uL Lymph # (Auto) (0.6-2.4) K/uL [place] # (Auto) (0.0-0.8) K/uL Eos # (Auto) (0.0-0.7) K/uL Baso # (Auto) (0.0-0.1) K/uL Nucleated RBC % /100WBC Nucleated RBCs # K/uL INR APTT (18.6-31.3) SEC Sodium (136-148) mmol/L Potassium (3.5-5.1) mmol/L Chloride (98-107) mmol/L Carbon Dioxide (21.0-32.0) mmol/L BUN (7.0-18.0) mg/dL Creatinine (0.8-1.3) mg/dL Est Cr Clr Drug Dosing mL/min Estimated GFR (MDRD) ml/min Glucose (74-106) mg/dL Hemoglobin A1c 6.0 (4.5 - 6.2) % Lactic Acid 2.3 H* (0.4-2.0) mmol/L Calcium (8.5-10.1) mg/dL Magnesium (1.8-2.4) mg/dL Total Bilirubin (0.2-1.0) mg/dL AST (15-37) IU/L ALT (14-63) IU/L Alkaline Phosphatase (46-116) U/L Creatine Kinase (26-308) U/L Troponin I (0.000-0.056) ng/mL Total Protein (6.4-8.2) g/dL Albumin (3.4-5.0) g/dL Globulin (2.6-4.0) g/dL Albumin/Globulin Ratio (0.9-1.6) Triglycerides 66 (0-200) mg/dL Cholesterol 155 (50-200) mg/dL LDL Cholesterol, Calc 107 (60-180) mg/dL VLDL Cholesterol 13 (5-55) mg/dL HDL Cholesterol 35 L (40-60) mg/dL Cholesterol/HDL Ratio 4.4 (3.3-6.0) TSH, Ultra Sensitive 1.20 (0.36-3.74) uIU/mL Urine Color Urine Appearance Urine pH (5.0-8.0) Ur Specific [place] (1.001-1.035) Urine Protein (NEGATIVE) mg/dL Urine Glucose (UA) (NEGATIVE) mg/dL Urine Ketones (NEGATIVE) mg/dL Urine Occult Blood (NEGATIVE) Urine Nitrite (NEGATIVE) Urine Bilirubin (NEGATIVE) Urine Urobilinogen (<2.0) EU/dL Ur Leukocyte Esterase (NEGATIVE) Urine RBC (0-2/HPF) Urine WBC (0-5/HPF) Ur Epithelial Cells (NONE-FEW) Urine Bacteria (NEGATIVE) Urine Mucus (NONE-MOD) 11/03/20 11/04/20 11/04/20 Range/Units 19:24 06:30 06:30 WBC 4.96 (4.0-11.0) K/uL RBC 3.66 L (4.50-5.90) M/uL Hgb 11.6 L (13.0-17.0) g/dL Hct 34.9 L (38.0-50.0) % MCV 95.4 (80.0-98.0) fL MCH 31.7 (27.0-32.0) pg MCHC 33.2 (31.0-37.0) g/dL RDW Std Deviation 50.6 (28.0-62.0) fl RDW Coeff of Trev 15 (11.0-15.0) % Plt Count 228 (150-400) K/uL MPV 10.80 (7.40-12.00) fL Neut % (Auto) 37.7 L (48.0-80.0) % Lymph % (Auto) 43.8 H (16.0-40.0) % [place] % (Auto) 12.9 (0.0-15.0) % Eos % (Auto) 4.4 (0.0-7.0) % Baso % (Auto) 1.2 (0.0-1.5) % Neut # (Auto) 1.9 (1.4-5.7) K/uL Lymph # (Auto) 2.2 (0.6-2.4) K/uL [place] # (Auto) 0.6 (0.0-0.8) K/uL Eos # (Auto) 0.2 (0.0-0.7) K/uL Baso # (Auto) 0.1 (0.0-0.1) K/uL Nucleated RBC % 0.0 /100WBC Nucleated RBCs # 0 K/uL INR APTT (18.6-31.3) SEC Sodium 138 (136-148) mmol/L Potassium 3.5 (3.5-5.1) mmol/L Chloride 105 (98-107) mmol/L Carbon Dioxide 24.6 (21.0-32.0) mmol/L BUN 9 (7.0-18.0) mg/dL Creatinine 1.0 (0.8-1.3) mg/dL Est Cr Clr Drug Dosing 54.75 mL/min Estimated GFR (MDRD) > 60.0 ml/min Glucose 100 (74-106) mg/dL Hemoglobin A1c (4.5 - 6.2) % Lactic Acid (0.4-2.0) mmol/L Calcium 8.8 (8.5-10.1) mg/dL Magnesium (1.8-2.4) mg/dL Total Bilirubin 0.7 (0.2-1.0) mg/dL AST 19 (15-37) IU/L ALT 22 (14-63) IU/L Alkaline Phosphatase 71 (46-116) U/L Creatine Kinase 87 (26-308) U/L Troponin I (0.000-0.056) ng/mL Total Protein 6.4 (6.4-8.2) g/dL Albumin 3.3 L (3.4-5.0) g/dL Globulin 3.1 (2.6-4.0) g/dL Albumin/Globulin Ratio 1.1 (0.9-1.6) Triglycerides (0-200) mg/dL Cholesterol (50-200) mg/dL LDL Cholesterol, Calc (60-180) mg/dL VLDL Cholesterol (5-55) mg/dL HDL Cholesterol (40-60) mg/dL Cholesterol/HDL Ratio (3.3-6.0) TSH, Ultra Sensitive (0.36-3.74) uIU/mL Urine Color Urine Appearance Urine pH (5.0-8.0) Ur Specific [place] (1.001-1.035) Urine Protein (NEGATIVE) mg/dL Urine Glucose (UA) (NEGATIVE) mg/dL Urine Ketones (NEGATIVE) mg/dL Urine Occult Blood (NEGATIVE) Urine Nitrite (NEGATIVE) Urine Bilirubin (NEGATIVE) Urine Urobilinogen (<2.0) EU/dL Ur Leukocyte Esterase (NEGATIVE) Urine RBC (0-2/HPF) Urine WBC (0-5/HPF) Ur Epithelial Cells (NONE-FEW) Urine Bacteria (NEGATIVE) Urine Mucus (NONE-MOD) 11/04/20 Range/Units 06:30 WBC (4.0-11.0) K/uL RBC (4.50-5.90) M/uL Hgb (13.0-17.0) g/dL Hct (38.0-50.0) % MCV (80.0-98.0) fL MCH (27.0-32.0) pg MCHC (31.0-37.0) g/dL RDW Std Deviation (28.0-62.0) fl RDW Coeff of Trev (11.0-15.0) % Plt Count (150-400) K/uL MPV (7.40-12.00) fL Neut % (Auto) (48.0-80.0) % Lymph % (Auto) (16.0-40.0) % [place] % (Auto) (0.0-15.0) % Eos % (Auto) (0.0-7.0) % Baso % (Auto) (0.0-1.5) % Neut # (Auto) (1.4-5.7) K/uL Lymph # (Auto) (0.6-2.4) K/uL [place] # (Auto) (0.0-0.8) K/uL Eos # (Auto) (0.0-0.7) K/uL Baso # (Auto) (0.0-0.1) K/uL Nucleated RBC % /100WBC Nucleated RBCs # K/uL INR APTT (18.6-31.3) SEC Sodium (136-148) mmol/L Potassium (3.5-5.1) mmol/L Chloride (98-107) mmol/L Carbon Dioxide (21.0-32.0) mmol/L BUN (7.0-18.0) mg/dL Creatinine (0.8-1.3) mg/dL Est Cr Clr Drug Dosing mL/min Estimated GFR (MDRD) ml/min Glucose (74-106) mg/dL Hemoglobin A1c (4.5 - 6.2) % Lactic Acid 1.0 (0.4-2.0) mmol/L Calcium (8.5-10.1) mg/dL Magnesium (1.8-2.4) mg/dL Total Bilirubin (0.2-1.0) mg/dL AST (15-37) IU/L ALT (14-63) IU/L Alkaline Phosphatase (46-116) U/L Creatine Kinase (26-308) U/L Troponin I (0.000-0.056) ng/mL Total Protein (6.4-8.2) g/dL Albumin (3.4-5.0) g/dL Globulin (2.6-4.0) g/dL Albumin/Globulin Ratio (0.9-1.6) Triglycerides (0-200) mg/dL Cholesterol (50-200) mg/dL LDL Cholesterol, Calc (60-180) mg/dL VLDL Cholesterol (5-55) mg/dL HDL Cholesterol (40-60) mg/dL Cholesterol/HDL Ratio (3.3-6.0) TSH, Ultra Sensitive (0.36-3.74) uIU/mL Urine Color Urine Appearance Urine pH (5.0-8.0) Ur Specific [place] (1.001-1.035) Urine Protein (NEGATIVE) mg/dL Urine Glucose (UA) (NEGATIVE) mg/dL Urine Ketones (NEGATIVE) mg/dL Urine Occult Blood (NEGATIVE) Urine Nitrite (NEGATIVE) Urine Bilirubin (NEGATIVE) Urine Urobilinogen (<2.0) EU/dL Ur Leukocyte Esterase (NEGATIVE) Urine RBC (0-2/HPF) Urine WBC (0-5/HPF) Ur Epithelial Cells (NONE-FEW) Urine Bacteria (NEGATIVE) Urine Mucus (NONE-MOD) Med Orders - Current: Current Medications Acetaminophen (Acetaminophen 325 Mg Tab) 650 mg PO Q4H PRN PRN Reason: Pain (Mild 1-3)/fever Albuterol/Ipratropium (Albuterol/Ipratropium 3.0-0.5 Mg/3 Ml Neb Soln) 3 ml NEB Q4HRRT PRN PRN Reason: Shortness Of Breath/wheezing Last Admin: 11/03/20 23:04 Dose: 3 ml Documented by: Aspirin (Aspirin 325 Mg Tab) 325 mg PO DAILY [facility] Last Admin: 11/04/20 08:53 Dose: 325 mg Documented by: Atorvastatin Calcium (Atorvastatin 20 Mg Tab) 20 mg PO BEDTIME [facility] Last Admin: 11/03/20 21:16 Dose: 20 mg Documented by: Azithromycin 500 mg/ Sodium (Chloride) 250 mls @ 250 mls/hr IV Q24H [facility] Ceftriaxone Sodium/Dextrose 1 (gm/ Premix) 50 mls @ 100 mls/hr IV Q24H [facility] Pantoprazole Sodium 40 mg/ (Sodium Chloride) 10 mls @ 300 mls/hr IV DAILY [facility] Last Admin: 11/04/20 08:53 Dose: 300 mls/hr Documented by: Latanoprost (Latanoprost 0.005% Ophth Soln 2.5 Ml Bottle) 0 ml EYEBOTH BEDTIME [facility] Last Admin: 11/03/20 21:17 Dose: 1 drop Documented by: Ondansetron HCl (Ondansetron 4 Mg/2 Ml Sdv) 4 mg IVPUSH Q4H PRN PRN Reason: Nausea/Vomiting Last Admin: 11/03/20 23:05 Dose: 4 mg Documented by: Nystatin/Triamcin 15 (Gm Oint) 1 each TOP ASDIRECTED PRN PRN Reason: Rash Polyethylene Glycol (Polyethylene Glycol 3350 Powder 17 Gm Packet) 17 gm PO DAILY PRN PRN Reason: Constipation Propranolol HCl (Propranolol 60 Mg Cap.Er) 60 mg PO DAILY [facility] Last Admin: 11/04/20 08:53 Dose: 60 mg Documented by: Sodium Chloride (Sodium Chloride 0.9% 10 Ml Syringe) 10 ml FLUSH ASDIRECTED PRN PRN Reason: Keep Vein Open Last Admin: 11/03/20 13:27 Dose: 10 ml Documented by: Sodium Chloride (Sodium Chloride 0.9% 2.5 Ml Syringe) 2.5 ml FLUSH ASDIRECTED PRN PRN Reason: Keep Vein Open Last Admin: 11/03/20 13:27 Dose: 2.5 ml Documented by: Discontinued Medications Aspirin (Aspirin 81 Mg Tab.Chew) 324 mg PO ONETIME ONE Stop: 11/03/20 13:06 Last Admin: 11/03/20 13:29 Dose: 324 mg Documented by: Clopidogrel Bisulfate (Clopidogrel 75 Mg Tab) 300 mg PO ONETIME ONE Stop: 11/03/20 13:57 Last Admin: 11/03/20 14:20 Dose: 300 mg Documented by: Cefepime HCl 1 gm/ Premix 50 mls @ 100 mls/hr IV ONETIME ONE Stop: 11/03/20 14:25 Last Admin: 11/03/20 14:29 Dose: Not Given Documented by: Azithromycin 500 mg/ Sodium (Chloride) 250 mls @ 250 mls/hr IV ONETIME [facility] Last Admin: 11/03/20 15:39 Dose: 250 mls/hr Documented by: Ceftriaxone Sodium/Dextrose 1 (gm/ Premix) 50 mls @ 100 mls/hr IV ONETIME ONE Stop: 11/03/20 14:26 Last Admin: 11/03/20 14:20 Dose: 100 mls/hr Documented by: Sodium Chloride (Normal Saline) 1,000 mls @ 999 mls/hr IV .Bolus ONE Stop: 11/03/20 15:16 Last Admin: 11/03/20 14:20 Dose: 999 mls/hr Documented by: Sodium Chloride (Normal Saline) 500 mls @ 999 mls/hr IV .BOLUS ONE Stop: 11/03/20 20:00 Last Admin: 11/03/20 21:30 Dose: 999 mls/hr Documented by: Iopamidol (Iopamidol 755 Mg/Ml 500 Ml Multipack Bottle) 100 ml IVPUSH ONETIME ONE Stop: 11/03/20 13:10 Last Admin: 11/03/20 13:10 Dose: 100 ml Documented by: - Exam General: Reports: Alert, Oriented Lungs: Reports: Clear to Auscultation, Normal Respiratory Effort Cardiovascular: Reports: Regular Rate, Regular Rhythm GI/Abdominal Exam: Soft, Non-Tender Extremities: Normal Inspection, Normal Range of Motion, No Pedal Edema Neurological: Reports: Normal Gait, Normal Speech, Strength Equal Bilateral, Sensation Intact Psy/Mental Status: Reports: Alert
[2020-11-04 13:02] VITALS: BP 113/66; PULSE 56
[2020-11-04] MEDS ORDERED: cefTRIAXone 1 GM in Premix Bag 1 BAG IV SCH (15:00)
[2020-11-04] MEDS ORDERED: Azithromycin 500 MG in Sodium Chloride 0.9% 250 ML IV SCH (15:00)
== END 2020-11-04 12:40 | disposition home or self-care (01) ==
LOC: MW.ED 12:43 → MW.MS 16:44
PROVIDERS: ADMIT Student in an Organized Health Care Education/Training Program; ATTEND Student in an Organized Health Care Education/Training Program
DX: G45.9 Transient cerebral ischemic attack, unspecified (principal); N39.0 Urinary tract infection, site not specified; I21.4 Non-ST elevation (NSTEMI) myocardial infarction; J18.9 Pneumonia, unspecified organism; I10 Essential (primary) hypertension; Z79.899 Other long term (current) drug therapy; Z87.891 Personal history of nicotine dependence; Z88.2 Allergy status to sulfonamides
CPT/HCPCS: 36415; 70450; 70496; 70498; 70551; 71045; 80053; 80061; 81001; 82550; 82947; 83036; 83605; 83735; 84443; 84484; 85025; 85610; 85730; 93005; 96365; 96367; 96375; 97161; 99285; A9270; C9113; G0378; J0456; J0696; J2405; J7030; J7040; J7050; Q9967; 93010; 99284; J7620-GY